=== PATIENT | female | born 1935 | race African-American/Black ===

== ENCOUNTER 2016-03-14 07:20 | Inpatient (IN) | payer MEDICARE ==
[2016-03-14] VITALS (12 sets, daily range): BP systolic 139–192; BP diastolic 62–85; PULSE 68–114; RESP 14–28; TEMP 98–98.4; O2SAT 89–100
[~2016-03-14] VITALS: Ht 165.1 cm; Wt 73.7 kg
[~2016-03-14 07:20] MED LIST: AMLO10 PO; ASPI81 PO; CARV12.52 PO; CEPH500 PO; CINA30 PO; CLON.1 PO; EZET10 PO; HYDR-3129 PO; LEVO125T48 PO; LIPI80TA16 PO; LOSA25; RENATAB6; SEVEL800 PO
--- NOTE | 2016-03-14 07:42 | PD ---
HPI Chief Complaint: Respiratory Distress Time Seen by Provider: 07:28 Travel History International Travel<30 days: No Contact w/Intl Traveler<30days: No Traveled to known affect area: No History of Present Illness HPI 80-year-old female with ESRD on HD (MWF), diabetes, hypothyroidism, here for evaluation of shortness of breath. The patient reports having intermittent shortness of breath for the last week, worse yesterday and today. Shortness of breath is at rest, as well as with exertion. No chest pain. No fevers, chills , cough, or recent illness. No history of pulmonary disease. No history of DVT or PE. No hemoptysis. Last dialysis was 2 days ago. PFSH Past Medical History Anemia: Yes Blood Disorders: No Cancer: No Cardiovascular Problems: Yes (CAD) High Cholesterol: Yes Chemotherapy: No Diabetes: Yes (DIET CONTROLLED) Dialysis: Yes (MWF) Endocrine: Yes Gastrointestinal Disorders: Yes (HX COLON POLYPS) Glaucoma: No Genitourinary: Yes Hepatitis: No Hiatal Hernia: No Hypertension: Yes Immune Disorder: No Implanted Vascular Access Dvce: Yes Musculoskeletal: No Neurologic: Yes (DIABETIC NEUROPATHY) Psychiatric: No Reproductive: No Respiratory: No Immunizations Current: No Myocardial Infarction: Yes (2001, AND A SECOND ONE) Radiation Therapy: No Renal Failure: Yes (HEMODIALYSIS MW) Thyroid Disease: No PNEUMOCCOCAL Vaccine (Year): 1 Tubal Ligation: Yes Past Surgical History Abdominal Surgery: No AICD: No Body Medical Devices: AV FISTULA IN LEFT ARM Cardiac Surgery: No Ear Surgery: No Endocrine Surgery: No Eye Surgery: No Genitourinary Surgery: Yes (DIALYSIS) Gynecologic Surgery: No Joint Replacement: No Oral Surgery: No Pacemaker: Yes Thoracic Surgery: No Other Surgery: Yes (POLYS REMOVED FROM UTERUS) Social History Alcohol Use: No Tobacco Use: No Substance Use: No Allergies-Medications (Allergen,Severity, Reaction): Coded Allergies: No Known Allergies (Verified , 03/14/16) Reported Meds & Prescriptions Reported Meds & Active Scripts Active Reported Rosanne-Nissa Rx (B-Complex W/ C & Folic Acid) 1 Tab 1 Tab PO DAILY Vitamin D3 (Cholecalciferol) 2,000 Unit Chew 2,000 Units CHEW DAILY Clonidine (Clonidine HCl) 0.2 Mg Tab 0.2 Mg PO BID Amlodipine (Amlodipine Besylate) 10 Mg Tab 10 Mg PO DAILY Losartan (Losartan Potassium) 100 Mg Tab 100 Mg PO DAILY Atorvastatin (Atorvastatin Calcium) 40 Mg Tab 40 Mg PO HS Pentoxifylline ER (Pentoxifylline) 400 Mg Tab 400 Mg PO BID Carvedilol 12.5 Mg Tab 12.5 Mg PO BID Renvela (Sevelamer Carbonate) 800 Mg Tab 1,600 Mg PO TID Doxazosin (Doxazosin Mesylate) 2 Mg Tab 2 Mg PO BID Levothyroxine (Levothyroxine Sodium) 137 Mcg Tab 137 Mcg PO DAILY Aspirin 81 Mg Chew 81 Mg CHEW DAILY Review of Systems Except as stated in HPI: all other systems reviewed are Neg Physical Exam Narrative GENERAL: Pleasant, well-developed, well-nourished, comfortable, no acute distress. SKIN: Warm and dry. No rash. HEAD: Atraumatic. Normocephalic. EYES: Pupils equal and round. No scleral icterus. No injection or drainage. ENT: Mucous membranes pink and moist. NECK: Trachea midline. No JVD. CARDIOVASCULAR: Regular rate and rhythm. Left arm dialysis fistula with thrill and bruit. RESPIRATORY: No accessory muscle use. Minimal bibasilar rales. No wheezes or rhonchi. No retractions. Breath sounds equal bilaterally. GASTROINTESTINAL: Abdomen soft, non-tender, nondistended. Hepatic and splenic margins not palpable. MUSCULOSKELETAL: No obvious deformities. No clubbing. No cyanosis. No edema. NEUROLOGICAL: Awake and alert. No obvious cranial nerve deficits. Motor grossly within normal limits. Normal speech. PSYCHIATRIC: Appropriate mood and affect; insight and judgment normal. Data Data Last Documented VS Vital Signs Date Time Temp Pulse Resp B/P Pulse Ox O2 Delivery O2 Flow Rate FiO2 03/14/16 08:35 100 BiPAP 100 03/14/16 08:15 78 15 187/78 5 03/14/16 07:30 98.2 Orders Complete Blood Count With Diff (03/14/16 07:39) Comprehensive Metabolic Panel (03/14/16 07:39) B-Type Natriuretic Peptide (03/14/16 07:39) Act Partial Throm Time (Ptt) (03/14/16 07:39) Prothrombin Time / Inr (Pt) (03/14/16 07:39) Ckmb (Isoenzyme) Profile (03/14/16 07:39) Troponin I (03/14/16 07:39) Influenzae A/B Antigen (03/14/16 07:39) Iv Access Insert/Monitor (03/14/16 07:39) Electrocardiogram (03/14/16 07:39) Ecg Monitoring (03/14/16 07:39) Oximetry (03/14/16 07:39) Oxygen Administration (03/14/16 07:39) Chest, Single Ap (03/14/16 07:39) Sodium Chloride 0.9% Flush (Ns Flush) (03/14/16 07:45) Arterial Blood Gas (Abg) (03/14/16 ) CKMB (03/14/16 07:45) CKMB% (03/14/16 07:45) ^ Blood Flow Rate (03/14/16 09:27) ^ Dialysate Flow Rate (03/14/16 09:27) ^ Dialyzer (03/14/16 09:27) ^ Concentrate (03/14/16 09:27) ^ Acid Concentrate (03/14/16 09:27) ^ Length Of Dialysis (03/14/16 09:27) ^ Frequency Of Dialysis (03/14/16 09:27) ^ Dialysis Obtain (03/14/16 09:27) ^ Needle Size (03/14/16 09:27) ^ Dialysis Schedule (03/14/16 09:27) Resp Oxygen Anjum C Titrat 1-4 L (03/14/16 ) ^ Dialysis Weight (03/14/16 09:27) ^ Obtain As Needed (03/14/16 09:27) Sodium Chlor 0.9% 1000 Ml Inj (Ns 1000 M (03/14/16 09:27) Heparin Inj (Heparin Inj) (03/14/16 09:30) Sodium Chlor 0.9% 1000 Ml Inj (Ns 1000 M (03/14/16 09:27) Sodium Chlor 0.9% 1000 Ml Inj (Ns 1000 M (03/14/16 09:27) Mannitol Inj (Mannitol Inj) (03/14/16 09:30) Albumin 25% Inj (Albumin 25% Inj) (03/14/16 09:30) Sodium Chloride 0.9% Flush (Ns Flush) (03/14/16 09:30) Heparin Inj (Heparin Inj) (03/14/16 09:30) Gentamicin (Dialysis) Inj (Gentamicin (D (03/14/16 09:30) Ondansetron Inj (Zofran Inj) (03/14/16 09:30) Acetaminophen (Tylenol) (03/14/16 09:30) Diphenhydramine (Benadryl) (03/14/16 09:30) Nitroglycerin Sl (Nitrostat Sl) (03/14/16 09:30) Clonidine (Catapres) (03/14/16 09:30) Epoetin Gildardo Inj (Epogen Inj) (03/14/16 09:30) Gelatin 12 Mm/7 Mm Top (Gelfoam 12 Mm/7 (03/14/16 09:30) Admit Order (Ed Use Only) (03/14/16 09:31) Labs Laboratory Tests Test 03/14/16 07:45 White Blood Count 7.2 TH/MM3 Red Blood Count 2.76 MIL/MM3 Hemoglobin 8.4 GM/DL Hematocrit 25.5 % Mean Corpuscular Volume 92.1 FL Mean Corpuscular Hemoglobin 30.4 PG Mean Corpuscular Hemoglobin 33.0 % Concent Red Cell Distribution Width 16.9 % Platelet Count 240 TH/MM3 Mean Platelet Volume 8.9 FL Neutrophils (%) (Auto) 69.1 % Lymphocytes (%) (Auto) 21.2 % Monocytes (%) (Auto) 5.4 % Eosinophils (%) (Auto) 3.4 % Basophils (%) (Auto) 0.9 % Neutrophils # (Auto) 5.0 TH/MM3 Lymphocytes # (Auto) 1.5 TH/MM3 Monocytes # (Auto) 0.4 TH/MM3 Eosinophils # (Auto) 0.2 TH/MM3 Basophils # (Auto) 0.1 TH/MM3 CBC Comment DIFF FINAL Differential Comment Prothrombin Time 11.1 SEC Prothromb Time International 1.0 RATIO Ratio Activated Partial 29.1 SEC Thromboplast Time Sodium Level 138 MEQ/L Potassium Level 5.3 MEQ/L Chloride Level 102 MEQ/L Carbon Dioxide Level 26.2 MEQ/L Anion Gap 10 MEQ/L Blood Urea Nitrogen 32 MG/DL Creatinine 8.02 MG/DL Estimat Glomerular Filtration 6 ML/MIN Rate Random Glucose 103 MG/DL Calcium Level 8.1 MG/DL Total Bilirubin 0.6 MG/DL Aspartate Amino Transf 42 U/L (AST/SGOT) Alanine Aminotransferase 41 U/L (ALT/SGPT) Alkaline Phosphatase 119 U/L Total Creatine Kinase 131 U/L Creatine Kinase MB 0.6 NG/ML Troponin I LESS THAN 0.02 NG/ML B-Type Natriuretic Peptide 1409 PG/ML Total Protein 7.4 GM/DL Albumin 3.6 GM/DL MDM Medical Decision Making Medical Screen Exam Complete: Yes Emergency Medical Condition: Yes Medical Record Reviewed: Yes Differential Diagnosis Pulmonary edema/fluid overload, pneumonia, pneumothorax, PE, ACS Narrative Course Initial vital signs show heart rate 68, blood pressure 192/80, pulse ox 89% on room air, oral temp of 98F. About an hour after arrival to the emergency department, the patient became more short of breath. Her chest x-ray shows congestive heart failure with bilateral interstitial edema and a pleural effusion. She was started on BiPAP. CBC is remarkable for hemoglobin 8.4, hematocrit 25.5. CMP is remarkable for potassium 5.3 with slight hemolysis, BUN 32, creatinine 8 , GFR 6, otherwise unremarkable. Cardiac enzymes are negative. BNP is 1400 Case discussed with director government Dr. Azul. Plan is for dialysis today. Case discussed with lard renderer Dr. Castillo who will admit the patient to his service. Critical Care Narrative Aggregate critical care time was 35 minutes. Time to perform other separately billable procedures was not included in the critical care time. My time did not include minutes spent treating any other patients simultaneously or on activities that did not directly contribute to the patient's treatment. The services I provided to this patient were to treat and/or prevent clinically significant deterioration that could result in: , permanent disability, worsening clinical condition I provided critical care services requiring my management, as noted below: Chart data review, documentation time, medication orders and management, vital sign assessments/reviewing monitor data, ordering and reviewing lab tests, ordering and interpreting/reviewing x-rays and diagnostic studies, care of the patient and discussion of the patient with the admitting physicians. Diagnosis Primary Impression: Pulmonary edema Qualified Code: J81.0 - Acute pulmonary edema Additional Impressions: Pleural effusion, right Shortness of breath Hypoxia Chronic renal insufficiency Qualified Code: N18.9 - Chronic renal insufficiency, unspecified stage Rigoberto Crook MD Mar 14, 2016 07:42
[2016-03-14] MEDS ORDERED: SODIUM CHLORIDE 0.9% FLUSH 5 ML FLUSH IVF PRN ×2 (07:45→09:30)
[2016-03-14] MEDS ORDERED: CHOL1CHW5 CHEW (07:50)
[2016-03-14] MEDS ORDERED: SEVEL800 PO (07:50)
[2016-03-14] MEDS ORDERED: ATOR40TA16 PO (07:50)
[2016-03-14] MEDS ORDERED: DOXA1TAB35 PO (07:50)
[2016-03-14] MEDS ORDERED: AMLO10TA2 PO (07:50)
[2016-03-14] MEDS ORDERED: LOSA100T PO (07:50)
[2016-03-14] MEDS ORDERED: LEVO137T2 PO (07:50)
[2016-03-14] MEDS ORDERED: CLON0.2T PO (07:50)
[2016-03-14] MEDS ORDERED: CARV12.52 PO (07:50)
[2016-03-14] MEDS ORDERED: PENT400T PO (07:50)
[2016-03-14] MEDS ORDERED: ASPI81CH CHEW (07:50)
[2016-03-14] MEDS ORDERED: RENATAB6 PO (07:51)
[2016-03-14 08:03] LABS: BASOPHIL # 0.1 TH/MM3 (0-0.2); BASOPHIL % 0.9 % (0.0-2.0); EOSINOPHIL # 0.2 TH/MM3 (0-0.4); EOSINOPHIL % 3.4 % (0.0-4.0); HEMATOCRIT 25.5 % (35.0-46.0); HEMO FLAGS DIFF FINAL; LYMPH % 21.2 % (9.0-44.0); LYMPHOCYTE # 1.5 TH/MM3 (1.0-4.8); MEAN CELL VOLUME 92.1 FL (80.0-100.0); MEAN CORPUSCULAR HEMOGLOBIN 30.4 PG (27.0-34.0); MONO % 5.4 % (0.0-8.0); NEUT % 69.1 % (16.0-70.0); PLATELET COUNT 240 TH/MM3 (150-450); RED BLOOD COUNT 2.76 MIL/MM3 (4.00-5.30); RED CELL DISTRIBUTION WIDTH 16.9 % (11.6-17.2); WHITE BLOOD COUNT 7.2 TH/MM3 (4.0-11.0)
[2016-03-14 08:16] LABS: APTT (PATIENT) 29.1 SEC (24.3-30.1); PROTHROMBIN TIME - PATIENT 11.1 SEC (9.8-11.6)
--- NOTE | 2016-03-14 08:32 | RADRPT ---
EXAM DATE/TIME: 03/14/2016 07:42 [facility] COMPARISON: No previous studies available for comparison. INDICATIONS : Shortness of breath. MEDICAL HISTORY : None. SURGICAL HISTORY : Pacemaker. April-June 2015. ENCOUNTER: Initial ACUITY: 1 month PAIN SCORE: 0/10 LOCATION: Bilateral chest FINDINGS: The heart is moderately enlarged. Interstitial vascular prominence is seen throughout both lungs. Small right pleural effusion with underlying airspace disease is noted. There 2 chamber cardiac pacem irma is noted in place. CONCLUSION: Congestive heart failure with cardiomegaly, right pleural effusion and mild interstitial edema. Cardiac pacemaker. River Juares MD on March 14, 2016 at 8:29 Board Certified Radiologist. This report was verified electronically.
[2016-03-14 08:34] LABS: ALKALINE PHOSPHATASE 119 U/L (45-117); ALT (GPT) 41 U/L (10-53); ANION GAP 10 MEQ/L (5-15); AST (GOT) 42 U/L (15-37); BICARBONATE 26.2 MEQ/L (21.0-32.0); BLOOD UREA NITROGEN 32 MG/DL (7-18); CHLORIDE 102 MEQ/L (98-107); CREATINE KINASE 131 U/L (26-192); GLOMERULAR FILTRATION RATE 6 ML/MIN (>89); SODIUM (NA) 138 MEQ/L (136-145); TOTAL BILIRUBIN ADULT 0.6 MG/DL (0.2-1.0)
[2016-03-14 08:39] LABS: POTASSIUM 5.3 MEQ/L (3.5-5.1)
[2016-03-14 08:51] LABS: CKMB 0.6 NG/ML (0.5-3.6)
[2016-03-14] MEDS ORDERED: SODIUM CHLOR 0.9% 1000 ML INJ 1,000 ML IV PRN ×3 (09:27)
[2016-03-14] MEDS ORDERED: ALBUMIN HUMAN 25% 25 GM/100 ML BAGP IV PRN (09:30)
[2016-03-14] MEDS ORDERED: ACETAMINOPHEN 325 MG TAB PO PRN (09:30)
[2016-03-14] MEDS ORDERED: ONDANSETRON HCL 4 MG/2 ML VIAL IV PRN (09:30)
[2016-03-14] MEDS ORDERED: cloNIDine HCL 0.1 MG TAB PO PRN (09:30)
[2016-03-14] MEDS ORDERED: EPOETIN ALFA 10,000 UNITS/ML VIAL IV PRN (09:30)
[2016-03-14] MEDS ORDERED: GELATIN 12 MM/7 MM FOAM TOP PRN (09:30)
[2016-03-14] MEDS ORDERED: GENTAMICIN SULFATE (DIALYSIS USE ONLY) 20 MG/2 ML VIAL IV PRN (09:30)
[2016-03-14] MEDS ORDERED: NITROGLYCERIN 0.4 MG SL 25 TABS/BTL SL PRN (09:30)
[2016-03-14] MEDS ORDERED: MANNITOL 12.5 GM/50 ML VIAL IV PRN (09:30)
[2016-03-14] MEDS ORDERED: diphenhydrAMINE HCL 25 MG CAP PO PRN (09:30)
[2016-03-14] MEDS ORDERED: HEPARIN SODIUM - IV 10,000 UNITS/10 ML VIAL PRN (09:30)
[2016-03-14] MEDS ORDERED: HEPARIN SODIUM - IV 10,000 UNITS/10 ML VIAL IVF PRN (09:30)
[2016-03-14] MEDS ORDERED: CHLORHEXIDINE GLUCONATE 2 % 1 PACK (2 CLOTHS) TOP PRN (10:30)
[2016-03-14] MEDS ORDERED: MISCELLANEOUS NURSING INFORMATION XX SCH (10:30)
[2016-03-14] MEDS ORDERED: RESP: ALBUTEROL 2.5 MG/IPRATROPIUM 0.5 MG NEB (PRN) INH (10:30)
[2016-03-14] MEDS ORDERED: hydrALAZINE HCL 20 MG/ML VIAL IV PUSH PRN (10:45)
[2016-03-14] MEDS: PENTOXIFYLLINE 400 MG CONTROLLED RELEASE TAB PO SCH ×2 (11:00→20:08)
[2016-03-14] MEDS: LEVOTHYROXINE SODIUM 25 MCG TAB PO SCH (11:00)
[2016-03-14] MEDS: LEVOTHYROXINE SODIUM 112 MCG TAB PO SCH (11:00)
--- NOTE | 2016-03-14 11:28 | MH ---
cc: ROHAN ABRAHAM M.D. DATE OF ADMISSION 03/14/2016 DATE OF 1935 HISTORY The patient is a 80-year-old female with a past medical history of end-stage renal disease on hemodialysis Thursday, Thursday, Thursday being followed by Dr. Jeremias Eid as an outpatient, hypothyroidism, hypertension and diet-controlled diabetes. She presented to [facility] ED with a two-day history of progressive worsening shortness of breath associated with swelling of her feet. She denies any associated symptoms of chest pain, cough, fever or any constitutional symptoms. In addition, she denies any history of nausea, vomiting, abdominal pain, orthopnea or PND. Her last dialysis session was two days ago. On arrival to the ED, she was hypertensive with a blood pressure of 192/80. The patient was placed on a BiPap currently 10/5 with 100% FIO2 with a saturation of 100%. A chest x-ray in the ED showed fluid overload, CHF with cardiomegaly. Nephrology service has been contacted by ED to initiate hemodialysis. The patient has a fistula in the left upper extremity. Her laboratory data significant for elevated BNP at 1409. Her creatinine is 8.02 with a potassium 5.30. No evidence of any fever or leukocytosis. PAST MEDICAL HISTORY Significant for: 1. Hypothyroidism 2. Hypertension 3. End-stage renal disease PAST SURGICAL HISTORY 1. AV fistula in the left upper extremity 2. Polyps removed from the uterus ALLERGIES NO KNOWN DRUG ALLERGIES. SOCIAL HISTORY Nonsmoker, nondrinker. FAMILY HISTORY Noncontributory. REPORTED MEDICATIONS 1. Vitamin D3 2. Clonidine 3. Amlodipine 4. Losartan 5. Atorvastatin 6. Pentoxifylline 7. Coreg 8. [place] 9. Doxazosin 10. Levofloxacin 11. Aspirin REVIEW OF SYSTEMS As per HPI. The review of the systems is unremarkable. PHYSICAL EXAM This is an 80-year-old female lying in bed in mild to moderate respiratory distress. VITAL SIGNS: Temperature of 98.2, pulse of 91, blood pressure 170/67, saturation of 100% on BiPap 10/5 with 100% saturation. HEENT: Atraumatic, normocephalic. Pupil equal and reactive to light and accommodation. Extraocular muscles intact. Conjunctivae pink. Nonicteric sclerae. Oral mucosa within normal. NECK: Supple. No JVD, adenopathy, thyromegaly. Trachea midline. CARDIOVASCULAR: Regular rate and rhythm. Normal S1-S2. No murmurs, rubs or gallops noted. PULMONARY: Bilateral equal entry with coarse breath sounds. ABDOMEN: Soft, obese, nontender, no distension. Positive bowel sounds. EXTREMITIES: No cyanosis, edema. NEUROLOGIC: No focal sensory deficit. RADIOGRAPHY STUDIES A chest x-ray Showed pulmonary vascular congestion, cardiomegaly. LABORATORY DATA Sodium 138, potassium 5.3, chloride 102, CO2 26, BUN 32, creatinine 8, glucose of 103, BNP 1409, troponin less than 0.02, total CK 131. WBC at 7.2, hemoglobin 8.4, hematocrit 25, platelet count of 240, INR 1, PT 11.1, PTT 29.1. IMPRESSION 1. Acute hypoxemic respiratory failure. 2. Hypertensive urgency 3. Fluid overload 4. End-stage renal disease 5. Hypothyroidism 6. Anemia of chronic disease RECOMMENDATIONS 1. Monitor neuro status and avoid any sedatives. 2. Wean down oxygen as tolerated. 3. Maintain sats above 92%. 4. Bronchodilators in the form of DuoNeb q4+q2 p.r.n. for shortness of breath. 5. Noninvasive positive pressure ventilation p.r.n. for respiratory distress. 6. Resume home blood pressure meds which include Norvasc 10 mg daily, clonidine 0.2 mg b.i.d., in addition will place on hydralazine 10 mg IV q6 hours p.r.n. for systolic blood pressure greater than 160. 7. Continue with aspirin and Lipitor 40 mg p.o. q.h.s. 8. Monitor renal function and electrolytes closely. 9. Nephrology service has been notified for initiation of hemodialysis. 10. Continue with Renvela 1600 mg p.o. t.i.d. and vitamin D3 11. Keep n.p.o. for now until respiratory status improves. 12. Monitor for signs of infections which include fever and WBC. 13. We will check urinalysis with culture if indicated. 14. Monitor CBC and continue with Epogen per nephrology with Hemodialysis. 15. Sliding scale insulin if needed for glycemic control. 16. We will continue with Synthroid home dose 137 mcg p.o. daily. We will check baseline TSH level. 17. GI prophylaxis with Protonix 40 mg daily and DVT prophylaxis with SCD's. Further recommendations will be based on hospital course. Critical care time 40 minutes excluding procedures. Addendum: Patient s/p HD with removal 5L. She is down to 3L oxygen with good sats, BP is better controlled. Will sign off and transfer care to [facility]. MD PERRI Garcia/GREGORIO /10:43 AM /11:13 AM MTDMitra
--- NOTE | 2016-03-14 12:14 | PD.CONS ---
HPI Service Nephrology Consult Requested By Reason for Consult ESRD on HD, fluid overload Primary Care Physician Jeremias Eid MD History of Present Illness This is an 80 y/o AAF patient who presented to ER with shortness of breath. Chest X ray confirming fluid overload, she was nearly started on BiPap for respiratory assistance. PMH of ESRD on HD -, HTN, Hyperlipidemia, and anemia , she had full treatment on Thursday. She was seen during dialysis today, on NRB but breathing easily. Blood pressure is acceptable. We were consulted for dialysis management. (Monica Bella) Review of Systems Constitutional: COMPLAINS OF: Fatigue, DENIES: Weight gain, Change in appetite Respiratory: COMPLAINS OF: Shortness of breath Cardiovascular: COMPLAINS OF: Dyspnea on Exertion, DENIES: Chest pain, Lower Extremity Edema (Monica Bella) Past Family Social History Allergies: Coded Allergies: No Known Allergies (Verified , 03/14/16) Past Medical History HTN Hypothyroid Anemia Metabolic Bone disorder Hyperlipidemia Past Surgical History AVF left arm Reported Medications Rosanne-Nissa Rx (B-Complex W/ C & Folic Acid) 1 Tab 1 Tab PO DAILY Vitamin D3 (Cholecalciferol) 2,000 Unit Chew 2,000 Units CHEW DAILY Clonidine (Clonidine HCl) 0.2 Mg Tab 0.2 Mg PO BID Amlodipine (Amlodipine Besylate) 10 Mg Tab 10 Mg PO DAILY Losartan (Losartan Potassium) 100 Mg Tab 100 Mg PO DAILY Atorvastatin (Atorvastatin Calcium) 40 Mg Tab 40 Mg PO HS Pentoxifylline ER (Pentoxifylline) 400 Mg Tab 400 Mg PO BID Carvedilol 12.5 Mg Tab 12.5 Mg PO BID Renvela (Sevelamer Carbonate) 800 Mg Tab 1,600 Mg PO TID Doxazosin (Doxazosin Mesylate) 2 Mg Tab 2 Mg PO BID Levothyroxine (Levothyroxine Sodium) 137 Mcg Tab 137 Mcg PO DAILY Aspirin 81 Mg Chew 81 Mg CHEW DAILY Active Ordered Medications Current Medications Medications (Trade) Dose Ordered Sig/Tamar Route Start Time Stop Time Status Last Admin IV Flush 2 ml 2 ml UNSCH PRN IVF 03/14/16 07:45 (NS 1000 ml Inj) 1,000 ml @ 0 mls/hr Q0M PRN IV 03/14/16 09:27 Heparin Sodium (Porcine) 8000 units 8,000 units UNSCH PRN IVF 03/14/16 09:30 Sodium Chloride 1,000 ml @ 200 mls/hr Q5H PRN IV 03/14/16 09:27 (NS 1000 ml Inj) 1,000 ml @ 0 mls/hr Q0M PRN IV 03/14/16 09:27 (Mannitol Inj) 12.5 gm UNSCH PRN IV 03/14/16 09:30 (Albumin 25% Inj) 25 gm UNSCH PRN IV 03/14/16 09:30 (NS Flush) 5 ml UNSCH PRN IVF 03/14/16 09:30 (Heparin Inj) UNSCH PRN .XX 03/14/16 09:30 (Gentamicin (Dialysis) Inj) 20 mg UNSCH PRN IV 03/14/16 09:30 (Zofran Inj) 4 mg UNSCH PRN IV 03/14/16 09:30 (Tylenol) 650 mg UNSCH PRN PO 03/14/16 09:30 (Benadryl) 25 mg UNSCH PRN PO 03/14/16 09:30 (Nitrostat Sl) 0.4 mg UNSCH PRN SL 03/14/16 09:30 (Catapres) 0.1 mg UNSCH PRN PO 03/14/16 09:30 (Epogen Inj) 10,000 units UNSCH PRN IV 03/14/16 09:30 (Gelfoam 12 Mm/7 Mm Top) 1 foam UNSCH PRN TOP 03/14/16 09:30 (Protonix Inj) 40 mg DAILY IV 03/15/16 09:00 Miscellaneous Information 1 Q361D XX 03/14/16 10:30 (Chlorhexidine 2% Cloth) 3 pack Taper DAILY@04 TOP 03/15/16 04:00 03/11/17 03:59 (Chlorhexidine 2% Cloth) 3 pack UNSCH PRN TOP 03/14/16 10:30 (Norvasc) 10 mg DAILY PO 03/14/16 11:00 (Aspirin Chew) 81 mg DAILY CHEW 03/14/16 11:00 (Lipitor) 40 mg HS PO 03/14/16 21:00 (Catapres) 0.2 mg BID PO 03/14/16 11:00 (TRENtal SR) 400 mg BID PO 03/14/16 11:00 (Renvela) 1,600 mg TID PO 03/14/16 13:00 (Vitamin D3) 2,000 units DAILY PO 03/14/16 11:00 (Synthroid) 112 mcg DAILY@06 PO 03/14/16 11:00 (Apresoline Inj) 10 mg Q6H PRN IV PUSH 03/14/16 10:45 (Synthroid) 25 mcg DAILY@06 PO 03/14/16 11:00 Family History No hx of family renal disorders Social History , lives locally with No smoking or drinking per history Retired full code independent (Monica Bella) Physical Exam Vital Signs Vital Signs Date Time Temp Pulse Resp B/P Pulse Ox O2 Delivery O2 Flow Rate FiO2 03/14/16 08:35 100 BiPAP 100 03/14/16 08:35 100 100 03/14/16 08:15 78 15 187/78 92 Nasal Cannula 5 03/14/16 07:45 92 Nasal Cannula 2 03/14/16 07:35 19 91 Room Air 03/14/16 07:30 98.2 114 19 174/85 91 03/14/16 07:26 98.0 68 28 192/80 89 Room Air Physical Exam Young appearing AAF sitting supine on Non rebreather, not tachypneic awake/oriented x 3, no neuro deficit Lungs; bibasilar rales, no wheezing CV: S1/S2, regular rate Abd: obese, soft Ext: no edema, LUE AVF, accessed during dialysis Laboratory Laboratory Tests Test 03/14/16 07:45 White Blood Count 7.2 Red Blood Count 2.76 Hemoglobin 8.4 Hematocrit 25.5 Mean Corpuscular Volume 92.1 Mean Corpuscular Hemoglobin 30.4 Mean Corpuscular Hemoglobin 33.0 Concent Red Cell Distribution Width 16.9 Platelet Count 240 Mean Platelet Volume 8.9 Neutrophils (%) (Auto) 69.1 Lymphocytes (%) (Auto) 21.2 Monocytes (%) (Auto) 5.4 Eosinophils (%) (Auto) 3.4 Basophils (%) (Auto) 0.9 Neutrophils # (Auto) 5.0 Lymphocytes # (Auto) 1.5 Monocytes # (Auto) 0.4 Eosinophils # (Auto) 0.2 Basophils # (Auto) 0.1 CBC Comment DIFF FINAL Differential Comment Prothrombin Time 11.1 Prothromb Time International 1.0 Ratio Activated Partial 29.1 Thromboplast Time Sodium Level 138 Potassium Level 5.3 Chloride Level 102 Carbon Dioxide Level 26.2 Anion Gap 10 Blood Urea Nitrogen 32 Creatinine 8.02 Estimat Glomerular Filtration 6 Rate Random Glucose 103 Calcium Level 8.1 Total Bilirubin 0.6 Aspartate Amino Transf 42 (AST/SGOT) Alanine Aminotransferase 41 (ALT/SGPT) Alkaline Phosphatase 119 Total Creatine Kinase 131 Creatine Kinase MB 0.6 Troponin I LESS THAN 0.02 B-Type Natriuretic Peptide 1409 Total Protein 7.4 Albumin 3.6 Date/Time Procedure Status Source Growth 03/14/16 09:00 Influenza Types A,B Antigen (MICHELLE) - Final Complete Nasal Washing NEGATIVE FOR FLU A AND B ANTIGEN.... (Monica Bella) Result Diagram: 03/14/16 0745 03/14/16 0745 Imaging Last 72 hours Impressions Chest X-Ray 03/14/16 0739 Signed Impressions: Service Date/Time: Monday, March 14, 2016 07:42 - CONCLUSION: Congestive heart failure with cardiomegaly, right pleural effusion and mild interstitial edema. Cardiac pacemaker. River Juares MD (Monica Bella) Assessment and Plan Problem List: (1) ESRD (end stage renal disease) Plan: Seen during dialysis on a 3K, 350 BFR, goal 5L continue HD while inpatient follow up potassium level in the morning monitor AVF for complications begin renvela for metabolic bone disorder (2) Fluid overload Plan: 5 liter UF today monitor fluid volume status (3) Anemia Plan: epogen with dialysis (Monica Bella) Problem List: (1) Fluid overload (2) Anemia (3) ESRD (end stage renal disease) (4) Essential (primary) hypertension Plan: Monitor response after fluid removal. Assessment and Plan patient was seen and examined. She presented with pulmonary edema, and hypoxia. Emergently dialyzed, feels much better, except for some cramping at the ankles. Possible discharge tomorrow. (Hemant Azul MD) Monica Bella Mar 14, 2016 12:14 Hemant Azul MD Mar 14, 2016 16:26
[2016-03-14] MEDS: cloNIDine HCL 0.2 MG TAB PO SCH ×2 (14:39→20:02)
[2016-03-14] MEDS: CHOLECALCIFEROL (VIT D3) 1000 UNIT TAB PO SCH (14:39)
[2016-03-14] MEDS: ASPIRIN 81 MG CHEW TAB CHEW SCH (14:39)
[2016-03-14] MEDS: SEVELAMER CARBONATE 800 MG TAB PO SCH ×2 (14:40→17:25)
[2016-03-14] MEDS: RESP: ALBUTEROL 2.5 MG/IPRATROPIUM 0.5 MG NEB (SCH) INH ×3 (16:44→23:23)
--- NOTE | 2016-03-14 18:47 | EKG ---
Date Performed: 03/14/2016 Time Performed: 08:15:28 PTAGE: 80 years EKG: ELECTRONIC ATRIAL PACEMAKER NONSPECIFIC T-WAVE ABNORMALITY ABNORMAL RHYTHM ECG PREVIOUS TRACING : 09/26/2014 08.46 Since previous tracing, no significant change noted DOCTOR: Mary Boswell Interpretating Date/Time 03/14/2016 18:45:41
[2016-03-14] MEDS ORDERED: ATORVASTATIN 40 MG TAB PO SCH (21:00)
[2016-03-15] VITALS (8 sets, daily range): BP systolic 155–181; BP diastolic 68–73; PULSE 72–77; RESP 13–17; TEMP 98.3–98.8; O2SAT 96–99
[2016-03-15] MEDS: RESP: ALBUTEROL 2.5 MG/IPRATROPIUM 0.5 MG NEB (SCH) INH ×3 (03:09→11:18)
[2016-03-15] MEDS ORDERED: CHLORHEXIDINE GLUCONATE 2 % 1 PACK (2 CLOTHS) TOP SCH (04:00)
[2016-03-15 04:13] LABS: AUTOMATED NEUTROPHIL # 7.6 TH/MM3 (1.8-7.7); BASOPHIL % 0.2 % (0.0-2.0); EOSINOPHIL # 0.2 TH/MM3 (0-0.4); EOSINOPHIL % 1.8 % (0.0-4.0); HEMATOCRIT 27.9 % (35.0-46.0); HEMO FLAGS DIFF FINAL; LYMPH % 12.1 % (9.0-44.0); LYMPHOCYTE # 1.2 TH/MM3 (1.0-4.8); MEAN CORPUSCULAR HEMOGLOBIN 30.1 PG (27.0-34.0); MONO % 6.9 % (0.0-8.0); PLATELET COUNT 237 TH/MM3 (150-450); RED BLOOD COUNT 3.06 MIL/MM3 (4.00-5.30); RED CELL DISTRIBUTION WIDTH 16.9 % (11.6-17.2); WHITE BLOOD COUNT 9.6 TH/MM3 (4.0-11.0)
[2016-03-15 04:40] LABS: BICARBONATE 31.9 MEQ/L (21.0-32.0); POTASSIUM 4.1 MEQ/L (3.5-5.1)
--- NOTE | 2016-03-15 04:52 | RADRPT ---
EXAM DATE/TIME: 03/15/2016 03:29 [facility] COMPARISON: CHEST SINGLE AP, March 14, 2016, 7:42. INDICATIONS : Shortness of breath, possible pulmonary disease. MEDICAL HISTORY : Congestive heart failure. SURGICAL HISTORY : Pacemaker. ENCOUNTER: Subsequent ACUITY: 2 days PAIN SCORE: 0/10 LOCATION: Bilateral chest FINDINGS: The cardiac silhouette is enlarged in transverse diameter. A bipolar pacemaker is in place via a left sided approach. There is prominence of the central pulmonary vasculature with indistinct vascular ma rgins compatible with vascular congestion but no evidence of overt failure. The findings are improved when compared with the prior exam. A small right sided effusion is present. CONCLUSION: 1. Cardiomegaly with improving congestive heart failure when compared with the prior study 2. Small right effusion Levi Song MD on March 15, 2016 at 4:50 Board Certified Radiologist. This report was verified electronically.
[2016-03-15] MEDS: LEVOTHYROXINE SODIUM 112 MCG TAB PO SCH (05:32)
[2016-03-15] MEDS: LEVOTHYROXINE SODIUM 25 MCG TAB PO SCH (05:32)
--- NOTE | 2016-03-15 08:45 | HHI.PR ---
Subjective Remarks feels good. no sob. wants to go home Objective Vitals heart reg lung cta abd s/nt ext no edema Vital Signs Date Time Temp Pulse Resp B/P Pulse Ox O2 Delivery O2 Flow Rate FiO2 03/15/16 07:26 98 21 03/15/16 06:00 75 03/15/16 04:00 73 03/15/16 04:00 98.6 73 14 163/69 96 03/15/16 02:00 72 03/15/16 00:00 75 03/15/16 00:00 98.8 75 13 155/69 99 03/14/16 22:00 79 03/14/16 21:57 21 03/14/16 20:53 94 03/14/16 20:00 79 03/14/16 20:00 98.4 79 14 139/62 100 03/14/16 18:00 79 03/14/16 16:48 100 Nasal Cannula 3.00 03/14/16 16:00 98.4 78 16 155/71 100 03/14/16 16:00 78 03/14/16 14:00 80 03/14/16 13:46 98.3 79 14 174/76 100 03/14/16 13:46 80 03/14/16 03/14/16 03/15/16 15:00 23:00 07:00 Intake Total 150 ml 150 ml Output Total 5000 ml Balance -5000 ml 150 ml 150 ml Intake Oral 150 ml 150 ml Hemodialysis 5000 ml # Bowel Movements 1 Result Diagram: 03/15/1630903/15/16 0310 A/P Problem List: (1) ESRD (end stage renal disease) Status: Acute Plan: Pt with esrd presented with volume overload and hypoxic respiratory failure requiring temp. bipap HD 5 L yesterday and now on room air d/c today and f/u. (2) Fluid overload Status: Acute Plan: see above (3) Hypoxia Status: Acute Plan: see above (4) Essential (primary) hypertension Status: Acute Plan: home Waylon Salinas MD Mar 15, 2016 08:45
--- NOTE | 2016-03-15 08:46 | HHI.DCPOC ---
Discharge Care Plan Diagnosis: (1) ESRD (end stage renal disease) (2) Fluid overload (3) Hypoxia (4) Essential (primary) hypertension Goals to Promote Your Health * To prevent worsening of your condition and complications * To maintain your health at the optimal level Directions to Meet Your Goals Take your medications as prescribed Follow your dietary instruction Follow activity as directed Keep your appointments as scheduled Take your immunizations and boosters as scheduled If your symptoms worsen call your PCP, if no PCP go to Urgent Care Center or Emergency Room Smoking is Dangerous to Your Health. Avoid second hand smoke Call the 24-hour hour crisis hotline for domestic abuse at Waylon Santiago MD Mar 15, 2016 08:46
[2016-03-15] MEDS ORDERED: PANTOPRAZOLE SODIUM 40 MG VIAL IV SCH (09:00)
[2016-03-15] MEDS: PENTOXIFYLLINE 400 MG CONTROLLED RELEASE TAB PO SCH (09:00)
[2016-03-15] MEDS: ASPIRIN 81 MG CHEW TAB CHEW SCH (09:00)
[2016-03-15] MEDS ORDERED: cloNIDine HCL 0.2 MG TAB PO SCH (09:00)
[2016-03-15] MEDS: SEVELAMER CARBONATE 800 MG TAB PO SCH (09:04)
[2016-03-15] MEDS: CHOLECALCIFEROL (VIT D3) 1000 UNIT TAB PO SCH (09:04)
== END 2016-03-15 12:25 | disposition home or self-care (01) | DRG 189 ==
LOC: NEPC 07:32 → NEDA 09:34 → HIME 13:25
PROVIDERS: ADMIT Internal Medicine Critical Care Medicine; ATTEND Internal Medicine Critical Care Medicine
DX: J96.01 Acute respiratory failure with hypoxia (principal); N18.6 End stage renal disease; I13.0 Hypertensive heart and chronic kidney disease with heart failure and stage 1 through stage 4 chronic kidney disease, or unspecified chronic kidney disease; I50.9 Heart failure, unspecified; E88.89 Other specified metabolic disorders; E11.22 Type 2 diabetes mellitus with diabetic chronic kidney disease; I16.0 Hypertensive urgency; D63.8 Anemia in other chronic diseases classified elsewhere; E03.9 Hypothyroidism, unspecified; N18.9 Chronic kidney disease, unspecified; E11.40 Type 2 diabetes mellitus with diabetic neuropathy, unspecified; E78.5 Hyperlipidemia, unspecified; I25.10 Atherosclerotic heart disease of native coronary artery without angina pectoris; I25.2 Old myocardial infarction; Z86.010 Personal history of colon polyps; Z99.2 Dependence on renal dialysis
CPT/HCPCS: 71010; 80048; 80053; 82550; 82552; 83880; 84443; 84484; 85025; 85610; 85730; 87641; 87804; 90935; 93005; 94002; 94640; 94664; 96374; C9113; J0360; Q4081

== ENCOUNTER → 2016-06-17 | Outpatient (CLI) | payer MEDICARE ==
[~2016-06-17] VITALS: Ht 160 cm; Wt 76.8 kg
[~2016-06-17] MED LIST changes: -AMLO10 PO; +AMLO10TA2 PO; -ASPI81 PO; +ASPI81CH CHEW; +ATOR40TA16 PO; -CEPH500 PO; +CHLORHEXIDINE GLUCONATE 2 % 1 PACK (2 CLOTHS) TOPICAL PRN; +CHOL1CHW5 CHEW; -CINA30 PO; -CLON.1 PO; +CLON0.2T PO; +DOXA1TAB35 PO; -EZET10 PO; -HYDR-3129 PO; +INSULIN HUMAN REGULAR 1,000 UNITS/10 ML VIAL SQ PRN; +LACTATED RINGER'S 1000 ML IV PRN; -LEVO125T48 PO; +LEVO137T2 PO; -LIPI80TA16 PO; +LOSA100T PO; -LOSA25; +METOPROLOL TARTRATE 25 MG TAB PO PRN; +PENT400T PO; +POVIDONE IODINE 5% (ANTISEPSIS KIT) 4 APPLICATIONS EACH NARE PRN; +PROPOFOL 200 MG/20 ML AMP IV ONE; -RENATAB6; +RENATAB6 PO; +SODIUM CHLORID 0.9% 500 ML IV PRN
[2016-06-17 09:36] VITALS: BP 185/67; PULSE 72; RESP 18; TEMP 98.5; O2SAT 98
[2016-06-17 13:06] VITALS: TEMP 97.7
--- NOTE | 2016-06-17 13:20 | GIPROC ---
[facility] [address] [facility]. [facility], [address] EGD PROCEDURE REPORT EXAM DATE: 06/17/2016 PATIENT NAME: Lenka Barr MR #: [id number] BIRTHDATE: 1935 ATTENDING: Cathleen Barlow MD ORDER #: [id number] WASTE MACHINE TENDER: Blair Li Schulman, Neal, and Jody Fuentes STATUS: outpatient INDICATIONS: The patient is a 81 yr old female here for an EGD due to anemia PROCEDURE PERFORMED: EGD w/ biopsy MEDICATIONS: None and Per Anesthesia. TOPICAL ANESTHETIC: none CONSENT: The patient understands the risks and benefits of the procedure and understands that these risks include, but are not limited to: sedation, allergic reaction, infection, perforation and/or bleeding. Alternative means of evaluation and treatment include, among others: physical exam, x-rays, and/or surgical intervention. The patient elects to proceed with this endoscopic procedure. medical equipment was checked for proper function. Hand hygiene and appropriate measures for infection prevention was taken. After the risks, benefits and alternatives of the procedure were thoroughly explained, Informed consent was verified, confirmed and timeout was successfully executed by the treatment team. The patient was anesthetized with topical anesthesia and the EC-[id number] (Pedi C) endoscope was introduced through the mouth and advanced to the second portion of the duodenum. Retroflexed views revealed a hiatal hernia The gastroscope was then slowly withdrawn and removed. Duodenitis second portion-biopsy gastritis antrum-biopsy esophagitis distal esophagus-biopsy. ADVERSE EVENTS: There were no complications. IMPRESSIONS: 1. Duodenitis second portion-biopsy gastritis antrum-biopsy esophagitis distal esophagus-biopsy 2. Retroflexed views revealed a hiatal hernia RECOMMENDATIONS: 1. Await biopsy results. Biopsy results will not be ready for 7-10 days. If you don't hear from us in two weeks, call our office for biopsy results. 2. Anti-reflux regimen 3. Continue PPI 4. Avoid NSAIDS PATIENT CONDITION: stable DISPOSITION: Home REPEAT EXAM: EGD pending biopsy results Cathleen Barlow MD eSigned: Cathleen Barlow MD 06/17/2016 1:20 PM cc:
--- NOTE | 2016-06-17 13:24 | GIPROC ---
[facility] [address] [facility]. [facility] [place], [address] COLONOSCOPY PROCEDURE REPORT EXAM DATE: 06/17/2016 PATIENT NAME: Lenka Barr MR #: [id number] BIRTHDATE: 1935 ENDOSCOPIST: Cathleen Barlow MD ORDER #: [id number] GUEST SERVICES MANAGER: Blair Li Schulman, Neal, and Jody Fuentes STATUS: outpatient INDICATIONS: The patient is a 81 yr old female here for a colonoscopy due to anemia PROCEDURE PERFORMED: Colonoscopy, diagnostic -incomplete poor prep MEDICATIONS: None and Per Anesthesia. PREP QUALITY: poor ESTIMATED BLOOD LOSS: None CONSENT: The patient understands the risks and benefits of the procedure and understands that these risks include, but are not limited to: sedation, allergic reaction, infection, perforation and/or bleeding. Alternative means of evaluation and treatment include, among others: physical exam, x-rays, and/or surgical intervention. The patient elects to proceed with this endoscopic procedure. medical equipment was checked for proper function. Hand hygiene and appropriate measures for infection prevention was taken. After the risks, benefits and alternatives of the procedure were thoroughly explained, Informed consent was verified, confirmed and timeout was successfully executed by the treatment team. A digital exam revealed external hemorrhoids The Pentax EC-[id number] endoscope was introduced through the anus and advanced to the mid transverse colon. The instrument was then slowly withdrawn as the colon was fully examined. COLON FINDINGS: Diverticulosis sigmoid,descending poor prep. Retroflexed views revealed internal hemorrhoids and Retroflexed views revealed small internal hemorrhoids The scope was then completely withdrawn from the patient and the procedure terminated. PROCEDURE WITHDRAWAL TIME:6minutes ADVERSE EVENTS: There were no complications. IMPRESSIONS: 1. Diverticulosis sigmoid,descending poor prep 2. Retroflexed views revealed internal hemorrhoids 3. Retroflexed views revealed small internal hemorrhoids 4. Revealed external hemorrhoids RECOMMENDATIONS: High fiber diet repeat colon better prep in 1-3 month RECALL: Colonoscopy in 1-3 month Cathleen Barlow MD eSigned: Cathleen Barlow MD 06/17/2016 1:23 PM cc:
[2016-06-17 13:25] VITALS: BP 150/64; PULSE 74; RESP 18; O2SAT 96
== END ==
LOC: HEND 08:52
PROVIDERS: ATTEND Internal Medicine Gastroenterology
DX: K29.50 Unspecified chronic gastritis without bleeding (principal); K29.80 Duodenitis without bleeding; K20.9 Esophagitis, unspecified; K44.9 Diaphragmatic hernia without obstruction or gangrene; K57.30 Diverticulosis of large intestine without perforation or abscess without bleeding; K64.4 Residual hemorrhoidal skin tags; K64.8 Other hemorrhoids; D64.9 Anemia, unspecified; Z91.19 Patient's noncompliance with other medical treatment and regimen; Z86.010 Personal history of colon polyps
CPT/HCPCS: 00740; 43239; 45378; 84132; 88305; 88312; J7040

== ENCOUNTER 2016-08-11 00:30 | Inpatient (IN) | payer MEDICARE ==
[~2016-08-11] VITALS: Ht 160 cm; Wt 76.0 kg
[2016-08-11] VITALS (19 sets, daily range): BP systolic 137–183; BP diastolic 63–88; PULSE 70–80; RESP 19–32; TEMP 98–98.9; O2SAT 90–100
[~2016-08-11 00:30] MED LIST changes: -CHLORHEXIDINE GLUCONATE 2 % 1 PACK (2 CLOTHS) TOPICAL PRN; -INSULIN HUMAN REGULAR 1,000 UNITS/10 ML VIAL SQ PRN; -LACTATED RINGER'S 1000 ML IV PRN; -METOPROLOL TARTRATE 25 MG TAB PO PRN; -POVIDONE IODINE 5% (ANTISEPSIS KIT) 4 APPLICATIONS EACH NARE PRN; -PROPOFOL 200 MG/20 ML AMP IV ONE; -SODIUM CHLORID 0.9% 500 ML IV PRN
[2016-08-11] MEDS ORDERED: niCARdipine INJ 25 MG in SODIUM CHLOR 0.9% 250 ML INJ 250 ML IV SCH (00:45)
[2016-08-11] MEDS ORDERED: SODIUM CHLORIDE 0.9% FLUSH 10 ML FLUSH IVF PRN (00:45)
[2016-08-11 00:50] LABS: AUTOMATED NEUTROPHIL # 3.7 TH/MM3 (1.8-7.7); BASOPHIL # 0.1 TH/MM3 (0-0.2); EOSINOPHIL # 0.2 TH/MM3 (0-0.4); EOSINOPHIL % 3.5 % (0.0-4.0); HEMATOCRIT 30.1 % (35.0-46.0); HEMO FLAGS DIFF FINAL; LYMPH % 36.6 % (9.0-44.0); LYMPHOCYTE # 2.4 TH/MM3 (1.0-4.8); MEAN CELL VOLUME 91.4 FL (80.0-100.0); MEAN CORPUSCULAR HEMOGLOBIN 29.5 PG (27.0-34.0); MEAN CORPUSCULAR HGB CONC 32.3 % (32.0-36.0); MONO % 3.3 % (0.0-8.0); NEUT % 55.6 % (16.0-70.0); PLATELET COUNT 256 TH/MM3 (150-450); RED CELL DISTRIBUTION WIDTH 18.1 % (11.6-17.2); WHITE BLOOD COUNT 6.7 TH/MM3 (4.0-11.0)
--- NOTE | 2016-08-11 00:52 | PD ---
HPI Chief Complaint: Respiratory Distress Time Seen by Provider: 00:32 Travel History International Travel<30 days: No Contact w/Intl Traveler<30days: No Traveled to known affect area: No History of Present Illness HPI Is an 81-year-old female on hemodialysis Thursday presents emergency department in respiratory failure she is brought in by EMS on CPAP, initial saturations in the low 80s in the field. Breath sounds were noted to be rales in the field. Blood pressure was taken in the field at 240/p. On arrival the patient is tachypneic and very difficult to get history from, she is GCS of 15, arrives and states that she has had this happen to her before need to be admitted for dialysis and on BiPAP. Patient states she does make some minimal urine, she is followed by Dr. Priti Eid for her dialysis. She denies any chest pain fevers abdominal pain nausea vomiting or increased swelling of the legs. PFSH Past Medical History Anemia: Yes Blood Disorders: No Cancer: No Cardiovascular Problems: Yes (CAD) High Cholesterol: Yes Chemotherapy: No Diabetes: Yes (DIET CONTROLLED) Patient Takes Glucophage: No Dialysis: Yes (MWF) Diminished Hearing: No Endocrine: Yes Gastrointestinal Disorders: Yes (HX COLON POLYPS) Glaucoma: No Genitourinary: Yes Hepatitis: No Hiatal Hernia: No Hypertension: Yes Immune Disorder: No Implanted Vascular Access Dvce: Yes (PACEMAKER) Musculoskeletal: No Neurologic: Yes (DIABETIC NEUROPATHY) Psychiatric: No Reproductive: No Respiratory: No Immunizations Current: No Myocardial Infarction: Yes (2001, AND A SECOND ONE) Radiation Therapy: No Renal Failure: Yes (HEMODIALYSIS MWF) Thyroid Disease: No Tetanus Vaccination: Unknown Influenza Vaccination: Yes PNEUMOCCOCAL Vaccine (Year): 1 ?: Not Tubal Ligation: Yes Past Surgical History Abdominal Surgery: No AICD: No Body Medical Devices: AV FISTULA IN LEFT ARM Cardiac Surgery: Yes (PACER) Ear Surgery: No Endocrine Surgery: No Eye Surgery: No Genitourinary Surgery: Yes (DIALYSIS Thu) Gynecologic Surgery: No Joint Replacement: No Oral Surgery: No Pacemaker: Yes Thoracic Surgery: No Other Surgery: Yes (POLYPS REMOVED FROM UTERUS) Social History Alcohol Use: No Tobacco Use: No Substance Use: No Allergies-Medications (Allergen,Severity, Reaction): Coded Allergies: No Known Allergies (Verified , 08/11/16) Reported Meds & Prescriptions Reported Meds & Active Scripts Active Reported Rosanne-Nissa Rx (B-Complex W/ C & Folic Acid) 1 Tab 1 Tab PO DAILY Clonidine (Clonidine HCl) 0.2 Mg Tab 0.2 Mg PO BID Amlodipine (Amlodipine Besylate) 10 Mg Tab 10 Mg PO DAILY Losartan (Losartan Potassium) 100 Mg Tab 100 Mg PO DAILY Atorvastatin (Atorvastatin Calcium) 40 Mg Tab 40 Mg PO HS Pentoxifylline ER (Pentoxifylline) 400 Mg Tab 400 Mg PO DAILY Carvedilol 12.5 Mg Tab 12.5 Mg PO BID Renvela (Sevelamer Carbonate) 800 Mg Tab 1,600 Mg PO TID Doxazosin (Doxazosin Mesylate) 2 Mg Tab 2 Mg PO HS Levothyroxine (Levothyroxine Sodium) 137 Mcg Tab 137 Mcg PO DAILY Aspirin 81 Mg Chew 81 Mg CHEW DAILY Review of Systems Except as stated in HPI: all other systems reviewed are Neg Physical Exam Narrative GENERAL: Well-developed well-nourished, tachypneic and short of breath. SKIN: Focused skin assessment warm/dry. No rash no wound no skin breakdown. HEAD: Atraumatic. Normocephalic. EYES: Pupils equal and round. No scleral icterus. No injection or drainage. ENT: No nasal bleeding or discharge. Mucous membranes pink and moist. NECK: Trachea midline. No JVD. CARDIOVASCULAR: Minimally tachycardic with regular rhythm. No murmur appreciated. 2+ bilateral equal pulses in 4 extremities RESPIRATORY: Accessory muscle use with tachypnea, rales throughout all pickens, retractions intercostally. GASTROINTESTINAL: Abdomen soft, non-tender, nondistended. Hepatic and splenic margins not palpable. MUSCULOSKELETAL: No obvious deformities. No clubbing. No cyanosis. No edema. NEUROLOGICAL: Awake and alert. No obvious cranial nerve deficits. Motor grossly within normal limits. Normal speech. PSYCHIATRIC: Appropriate mood and affect; insight and judgment normal. Data Data Last Documented VS Vital Signs Date Time Temp Pulse Resp B/P Pulse Ox O2 Delivery O2 Flow Rate FiO2 08/11/16 01:58 98.9 75 22 137/63 96 Nasal Cannula 4 08/11/16 00:30 100 Orders Electrocardiogram (08/11/16 00:32) B-Type Natriuretic Peptide (08/11/16 00:32) Ckmb (Isoenzyme) Profile (08/11/16 00:32) Complete Blood Count With Diff (08/11/16 00:32) Comprehensive Metabolic Panel (08/11/16 00:32) Magnesium (Mg) (08/11/16 00:32) Prothrombin Time / Inr (Pt) (08/11/16 00:32) Act Partial Throm Time (Ptt) (08/11/16 00:32) Troponin I (08/11/16 00:32) Chest, Single Ap (08/11/16 00:32) Ecg Monitoring (08/11/16 00:32) Iv Access Insert/Monitor (08/11/16 00:32) Oximetry (08/11/16 00:32) Oxygen Administration (08/11/16 00:32) Sodium Chloride 0.9% Flush (Ns Flush) (08/11/16 00:45) Nicardipine Inj (Cardene Inj) (08/11/16 00:45) Arterial Blood Gas (Abg) (08/11/16 ) Furosemide Inj (Lasix Inj) (08/11/16 01:30) Furosemide Inj (Lasix Inj) (08/11/16 02:15) Admit Order (Ed Use Only) (08/11/16 ) Labs Laboratory Tests Test 08/11/16 08/11/16 00:41 01:13 White Blood Count 6.7 TH/MM3 Red Blood Count 3.30 MIL/MM3 Hemoglobin 9.7 GM/DL Hematocrit 30.1 % Mean Corpuscular Volume 91.4 FL Mean Corpuscular Hemoglobin 29.5 PG Mean Corpuscular Hemoglobin 32.3 % Concent Red Cell Distribution Width 18.1 % Platelet Count 256 TH/MM3 Mean Platelet Volume 9.2 FL Neutrophils (%) (Auto) 55.6 % Lymphocytes (%) (Auto) 36.6 % Monocytes (%) (Auto) 3.3 % Eosinophils (%) (Auto) 3.5 % Basophils (%) (Auto) 1.0 % Neutrophils # (Auto) 3.7 TH/MM3 Lymphocytes # (Auto) 2.4 TH/MM3 Monocytes # (Auto) 0.2 TH/MM3 Eosinophils # (Auto) 0.2 TH/MM3 Basophils # (Auto) 0.1 TH/MM3 CBC Comment DIFF FINAL Differential Comment Prothrombin Time 10.8 SEC Prothromb Time International 1.0 RATIO Ratio Activated Partial 24.3 SEC Thromboplast Time Sodium Level 136 MEQ/L Potassium Level 4.8 MEQ/L Chloride Level 98 MEQ/L Carbon Dioxide Level 27.3 MEQ/L Anion Gap 11 MEQ/L Blood Urea Nitrogen 51 MG/DL Creatinine 9.16 MG/DL Estimat Glomerular Filtration 5 ML/MIN Rate Random Glucose 161 MG/DL Calcium Level 8.0 MG/DL Magnesium Level 2.6 MG/DL Total Bilirubin 0.3 MG/DL Aspartate Amino Transf 46 U/L (AST/SGOT) Alanine Aminotransferase 48 U/L (ALT/SGPT) Alkaline Phosphatase 131 U/L Total Creatine Kinase 87 U/L Troponin I LESS THAN 0.02 NG/ML B-Type Natriuretic Peptide 1217 PG/ML Total Protein 7.8 GM/DL Albumin 3.6 GM/DL Blood Gas Puncture Site RT RADIAL Blood Gas Patient Temperature 98.6 Blood Gas HCO3 25 mmol/L Blood Gas Base Excess 1.4 mmol/L Blood Gas Oxygen Saturation 98 % Arterial Blood pH 7.43 Arterial Blood Partial 39 mmHg Pressure CO2 Arterial Blood Partial 270 mmHG Pressure O2 Arterial Blood Oxygen Content 12.8 Vol % Arterial Blood 1.7 % Carboxyhemoglobin Arterial Blood Methemoglobin 0.5 % Blood Gas Hemoglobin 8.8 G/DL Oxygen Delivery Device BIPAP Blood Gas Ventilator Setting 12IPAP/5EPAP Blood Gas Inspired Oxygen 100 % MDM Medical Decision Making Medical Screen Exam Complete: Yes Emergency Medical Condition: Yes Differential Diagnosis Flash pulmonary edema, hypertensive emergency, fluid overload, CHF, and stage renal disease, electrolyte abnormality, ACS, AMI. Narrative Course Patient was roomed in the emergency department transferred from CPAP to BiPAP machine. Initial settings were 5/12/100%. Has maintained her oxygen saturation about 98%. Blood gas showed a pH is 7.43 with PCO2 of 38. Chest x- ray confirmed the patient had substantial pulmonary edema. Initial blood pressure was much better on BiPAP once obtained in the emergency department, initial orders for Cardene drip were halted. Patient's initial laboratory workup showed anemia with a hemoglobin 9.7 , mild uremia with a BUNs of 51, potassium 4.8, PCO2 27.3, BNP of 1200. The patient continued to improve on BiPAP, she was able to be weaned to nasal cannula, she was discussed with Dr. Noonan who is on-call and recommended the patient be on Lasix and now that she is off BiPAP she can be observed overnight and likely dialyzed in the morning. Recommendations are discussed with the patient and she is agreeable for admission. Patient discussed with Dr. Patterson who is agreeable for admission. Procedures Procedure Narrative Aggregate critical care time was 35 minutes. Time to perform other separately billable procedures was not included in the critical care time. My time did not include minutes spent treating any other patients simultaneously or on activities that did not directly contribute to the patient's treatment. The services I provided to this patient were to treat and/or prevent clinically significant deterioration that could result in: , disability, organ failure. I provided critical care services requiring my management, as noted below: Chart data review, documentation time, medication orders and management, vital sign assessments/reviewing monitor data, ordering and reviewing lab tests, ordering and interpreting/reviewing x-rays and diagnostic studies, care of the patient and discussion of the patient with the admitting physicians. Diagnosis Primary Impression: Hypertensive emergency Additional Impressions: Flash pulmonary edema Acute respiratory failure with hypoxia Admitting Information Admitting Physician Requests: Admit Condition: Naldo Mccloud MD Aug 11, 2016 00:52
[2016-08-11 01:01] LABS: APTT (PATIENT) 24.3 SEC (24.3-30.1); PROTHROMBIN TIME - PATIENT 10.8 SEC (9.8-11.6)
--- NOTE | 2016-08-11 01:02 | RADRPT ---
EXAM DATE/TIME: 08/11/2016 00:38 [facility] COMPARISON: CHEST SINGLE AP, March 15, 2016, 3:29. INDICATIONS : Shortness of breath, respiratory distress. MEDICAL HISTORY : Congestive heart failure. SURGICAL HISTORY : Pacemaker. ENCOUNTER: Initial ACUITY: 1 day PAIN SCORE: 0/10 LOCATION: Bilateral chest FINDINGS: There is slight cardiomegaly and moderate perivascular pulmonary edema. Focal consolidation is not se en. Left subclavian pacer wires are present with tips in the right atrium and right ventricle. CONCLUSION: Moderate CHF. Esa Davis MD on August 11, 2016 at 1:00 Board Certified Radiologist. This report was verified electronically.
[2016-08-11 01:24] LABS: ALKALINE PHOSPHATASE 131 U/L (45-117); ALT (GPT) 48 U/L (10-53); ANION GAP 11 MEQ/L (5-15); AST (GOT) 46 U/L (15-37); BICARBONATE 27.3 MEQ/L (21.0-32.0); BLOOD UREA NITROGEN 51 MG/DL (7-18); CHLORIDE 98 MEQ/L (98-107); GLOMERULAR FILTRATION RATE 5 ML/MIN (>89); MAGNESIUM 2.6 MG/DL (1.5-2.5); POTASSIUM 4.8 MEQ/L (3.5-5.1); SODIUM (NA) 136 MEQ/L (136-145); TOTAL BILIRUBIN ADULT 0.3 MG/DL (0.2-1.0)
[2016-08-11 01:25] LABS: CREATINE KINASE 87 U/L (26-192)
[2016-08-11] MEDS ORDERED: FUROSEMIDE 100 MG/10 ML VIAL IV PUSH ONE (01:30)
[2016-08-11] MEDS ORDERED: FUROSEMIDE 40 MG/4 ML VIAL IV PUSH ONE (02:15)
--- NOTE | 2016-08-11 02:41 | HHI.HP ---
HPI Service Critical Care Medicine Primary Care Physician Costa Youngblood MD Admission Diagnosis Pulmonary Edema Diagnosis: Travel History International Travel<30 Days: No Contact w/Intl Traveler <30 Da: No Traveled to Known Affected Are: No History of Present Illness 80-year-old with a past medical history of end-stage renal disease on hemodialysis x8 years(Thursday/Thursday/Thursday) , hypertension, diet controlled diabetes, pacemaker, hypothyroidism, diet-controlled diabetes, chronic systolic and diastolic heart failure. She states that tonight she was sitting on the side of the bed and she developed shortness of breath. She denies any chest pain, palpitations, cough, sputum production or fever. Sats were in the 80s on E VAC arrival and she was placed on CPAP. Systolic blood pressure was 240 per EVAC . She was given nitroglycerin 0.4 mg sublingual. She was transitioned to BiPAP when she arrived to the emergency department. BP had improved to 159/78 upon arrival. She is followed by Dr. Jeremias Eid as an outpatient and her last HD session was 07/08/16 and she states they removed "1 point something" kg. She states they have not in removing as much fluid at dialysis over the last few weeks because she had lost some weight after doing a liquid diet during a colonoscopy prep 07/31. She has not noticed any peripheral edema. ED workup includes chest x-ray showing cardiomegaly and pulmonary edema, potassium of 4.8 , troponin 0.02, BNP 1217. Past Family Social History Allergies: Coded Allergies: No Known Allergies (Verified , 08/11/16) Past Medical History Hypertension Diet controlled diabetes mellitus Hypothyroidism End-stage renal disease on hemodialysis 8 years Chronic systolic and diastolic heart failure Echo ejection fraction 50%, LVH, diastolic dysfunction. Valves appear normal Peripheral arterial disease Hyperlipidemia Past Surgical History Pacemaker placement. Pacemaker was replaced about a year ago AV fistula left upper extremity about 8 years ago Bilateral cataract removal Hysteroscopy and D&C 09/04/11 (Dr. Jean) Colonoscopy Reported Medications Doxazosin 2 mg by mouth daily at bedtime Losartan 100 mg by mouth daily Carvedilol 12.5 mg by mouth twice a day Clonidine 0.2 g by mouth twice a day Amlodipine 10 mill grams by mouth daily Pentoxifilline ER 400 mg po daily Atorvastatin 40 g by mouth daily at bedtime Aspirin 81 mg daily Renvela 1600 mg by mouth 3 times a day Levothyroxin 137 g by mouth daily B vitamins and folic acid daily Family History No family history of cardiac or renal disease in her parents. Social History She has a [id number] history of smoking and quit in 1984 No alcohol or illicit drug use Physical Exam Vital Signs Vital Signs Date Time Temp Pulse Resp B/P Pulse Ox O2 Delivery O2 Flow Rate FiO2 08/11/16 01:58 98.9 75 22 137/63 96 Nasal Cannula 4 08/11/16 01:30 100 Nasal Cannula 4.00 08/11/16 00:44 74 23 161/72 100 BiPAP 08/11/16 00:35 98 BiPAP 08/11/16 00:30 79 32 159/78 98 08/11/16 00:30 32 100 BiPAP Physical Exam GENERAL: Very pleasant elderly female who is laying in the ED stretcher bundled up in multiple blankets. SKIN: Warm and dry, well perfused. No diaphoresis. HEAD: Atraumatic. Normocephalic. EYES: Pupils equal and round, 3 mm and reactive bilaterally.. No scleral icterus. No injection or drainage. ENT: No nasal bleeding or discharge. Mucous membranes pink and moist. NECK: Trachea midline. No JVD. CARDIOVASCULAR: Regular rate and rhythm, +S3 . No murmurs or rubs. RESPIRATORY: Breathing comfortably without accessory muscle use. Basilar Rales. No wheeze or rhonchi. Hasn't taken off BiPAP on 4 L nasal cannula with sats 96% GASTROINTESTINAL: Abdomen soft, non-tender, nondistended. Bowel sounds present. MUSCULOSKELETAL: Extremities without clubbing, cyanosis, or edema. VASC: LUE with AV fistula with +thrill. NEUROLOGICAL: Awake and alert. No obvious cranial nerve deficits. Motor grossly within normal limits. Five out of 5 muscle strength in the arms and legs. Normal speech. Laboratory Laboratory Tests Test 08/11/16 00:41 White Blood Count 6.7 Red Blood Count 3.30 Hemoglobin 9.7 Hematocrit 30.1 Mean Corpuscular Volume 91.4 Mean Corpuscular Hemoglobin 29.5 Mean Corpuscular Hemoglobin 32.3 Concent Red Cell Distribution Width 18.1 Platelet Count 256 Mean Platelet Volume 9.2 Neutrophils (%) (Auto) 55.6 Lymphocytes (%) (Auto) 36.6 Monocytes (%) (Auto) 3.3 Eosinophils (%) (Auto) 3.5 Basophils (%) (Auto) 1.0 Neutrophils # (Auto) 3.7 Lymphocytes # (Auto) 2.4 Monocytes # (Auto) 0.2 Eosinophils # (Auto) 0.2 Basophils # (Auto) 0.1 CBC Comment DIFF FINAL Differential Comment Prothrombin Time 10.8 Prothromb Time International 1.0 Ratio Activated Partial 24.3 Thromboplast Time Sodium Level 136 Potassium Level 4.8 Chloride Level 98 Carbon Dioxide Level 27.3 Anion Gap 11 Blood Urea Nitrogen 51 Creatinine 9.16 Estimat Glomerular Filtration 5 Rate Random Glucose 161 Calcium Level 8.0 Magnesium Level 2.6 Total Bilirubin 0.3 Aspartate Amino Transf 46 (AST/SGOT) Alanine Aminotransferase 48 (ALT/SGPT) Alkaline Phosphatase 131 Total Creatine Kinase 87 Troponin I LESS THAN 0.02 B-Type Natriuretic Peptide 1217 Total Protein 7.8 Albumin 3.6 Result Diagram: 08/11/164008/11/16 004 Assessment and Plan Problem List: (1) Pulmonary edema ICD Code: J81.1 Status: Acute (2) ESRD (end stage renal disease) ICD Code: N18.6 Status: Chronic (3) Flash pulmonary edema ICD Code: J81.0 Status: Acute (4) Acute respiratory failure with hypoxia ICD Code: J96.01 Status: Acute (5) Hypertensive emergency ICD Code: I16.1 Status: Acute (6) Fluid overload ICD Code: E87.70 Status: Acute (7) Anemia ICD Code: D64.9 Status: Chronic (8) Pacemaker ICD Code: Z95.0 Status: Acute (9) Chronic combined systolic and diastolic CHF (congestive heart failure) ICD Code: I50.42 Status: Chronic (10) Hyperlipidemia ICD Code: E78.5 Status: Chronic (11) Diabetes mellitus ICD Code: E11.9 Status: Chronic (12) Hypothyroidism ICD Code: E03.9 Status: Chronic Assessment and Plan NEURO: No acute neurologic issues RESP: Acute hypoxemic respiratory failure on arrival (improved) Was on BiPAP in the emergency department. Now off BiPAP and on nasal cannula which will wean as tolerated. Pulmonary edema, Volume overload Chest x-ray 08/11/16cardiomegaly and pulmonary edema CV: Hypertension Hypertensive emergency Chronic systolic and diastolic heart failure Pacemaker in place Hyperlipidemia Peripheral arterial disease Nicardipine drip was ordered in the emergency department but was never required. Blood pressure improved after nitroglycerin per E VAC. Will continue nitroglycerin 1 inch paste every 6 hours until after dialysis. Continue doxazosin to milligrams by mouth daily at bedtime, losartan 100 mg by mouth daily, carvedilol 12.5 mill grams by mouth twice a day, clonidine 0.2 g by mouth twice a day, Norvasc 10 mg by mouth daily Continue aspirin 81 mg daily Continue pentoxifylline 100 mill grams by mouth daily for claudication Continue statin troponin negative. No chest pain. EKG a-paced, nonspecific lateral ST change. GI: Renal diet, 1800 ADA FEN/RENAL: ESRD on hemodialysis Thursday, Thursday, Thursday Consult nephrology for hemodialysis. She is followed by Dr. Tucker Eid and left upper extremity AV fistula in place. Continue Renvela 1600 mg by mouth 3 times a day ID: Monitor for signs and symptoms of infection. No leukocytosis or fever. HEME: Chronic anemia ENDO: Diet controlled diabetes mellitus Hypothyroidism 1800 ADA diet. Continue Synthroid 137 micrograms by mouth daily PROPH: SCDs, heparin 5000 units subcutaneous every 12 hours for DVT prophylaxis. Protonix 40 milligrams by mouth today for stress ulcer prophylaxis. After that stress ulcer prophylaxis will not be indicated. ACCESS: Peripheral IV providing adequate access at this time. Patient presented with hypertensive emergency, pulmonary edema, respiratory distress and hypoxemic respiratory failure. She is improving but is at risk for recurrent flash pulmonary edema and respiratory failure until she receives hemodialysis. Have consulted nephrology for hemodialysis today. Then plan to transfer to floor ; hospitalist to assume care on 08/12. Level III H&P Problem Qualifiers (1) Diabetes mellitus: Apple Ptaterson MD Aug 11, 2016 02:41
[2016-08-11 02:52] LABS: BLOOD GAS BASE EXCESS 1.4 mmol/L (-2-2); BLOOD GAS CARBOXYHEMOGLOBIN 1.7 % (0-4); BLOOD GAS HCO3 25 mmol/L (22-26); BLOOD GAS METHEMOGLOBIN 0.5 % (0-2); BLOOD GAS O2 HGB SATURATION 98 % (90-100); BLOOD GAS OXYGEN CONTENT 12.8 Vol % (12.0-20.0); BLOOD GAS PCO2 39 mmHg (38-42); BLOOD GAS PO2 270 mmHG (61-120); BLOOD GAS TOTAL HGB 8.8 G/DL (12.0-16.0); CRITICAL VALUE NO; OXYGEN DEVICE BIPAP; TEMP CORR TO 98.6; VENT SETTINGS 12IPAP/5EPAP
[2016-08-11 02:53] LABS: DRAW SITE RT RADIAL; FIO2 100 %; NUMBER OF ARTERIAL PUNCTURES 1; STAT YES; ULNAR PULSE PRESENT
[2016-08-11] MEDS ORDERED: LACTULOSE SYRUP 20 GM/30 ML CUP PO PRN (03:00)
[2016-08-11] MEDS ORDERED: SODIUM CHLORIDE 0.9% FLUSH 10 ML FLUSH IV FLUSH PRN ×2 (03:00→09:00)
[2016-08-11] MEDS ORDERED: MISCELLANEOUS NURSING INFORMATION XX SCH (03:00)
[2016-08-11] MEDS ORDERED: ACETAMINOPHEN/HYDROcodone 325 MG/5 MG TAB PO PRN (03:00)
[2016-08-11] MEDS ORDERED: CHLORHEXIDINE GLUCONATE 2 % 1 PACK (2 CLOTHS) TOP PRN (03:00)
[2016-08-11] MEDS ORDERED: MAGNESIUM HYDROXIDE SUSP 30 ML CUP PO PRN (03:00)
[2016-08-11] MEDS ORDERED: SENNOSIDES 8.6 MG TAB PO PRN (03:00)
[2016-08-11] MEDS ORDERED: MORPHINE SULFATE 4 MG/ML INJ IV PRN (03:00)
[2016-08-11] MEDS ORDERED: ACETAMINOPHEN 325 MG TAB PO PRN ×2 (03:00→09:00)
[2016-08-11] MEDS ORDERED: ONDANSETRON HCL 4 MG/2 ML VIAL IV PRN ×2 (03:00→09:00)
[2016-08-11] MEDS ORDERED: BISACODYL 10 MG SUPP RECTAL PRN (03:00)
[2016-08-11] MEDS ORDERED: RESP: ALBUTEROL 2.5 MG/3 ML NEB (PRN) INH (03:00)
[2016-08-11] MEDS: HEPARIN SODIUM - SQ 10,000 UNITS/ML VIAL SQ SCH ×2 (03:25→15:00)
[2016-08-11] MEDS: NITROGLYCERIN 2% OINT 1 GM PACKET TOPICAL SCH ×4 (03:25→18:00)
[2016-08-11] MEDS ORDERED: PANTOPRAZOLE SOD 40 MG DELAYED RELEASE TAB PO ONE (03:45)
[2016-08-11] MEDS: CHLORHEXIDINE GLUCONATE 2 % 1 PACK (2 CLOTHS) TOP SCH (04:00)
[2016-08-11] MEDS: LEVOTHYROXINE SODIUM 112 MCG TAB PO SCH (05:30)
[2016-08-11] MEDS: LEVOTHYROXINE SODIUM 25 MCG TAB PO SCH (05:30)
--- NOTE | 2016-08-11 08:20 | HHI.PR ---
Subjective Remarks pt on bipap 02/03 oriented and following commands Objective Vitals bipap following commands heart reg lung crackles bases abd s/nt ext no edema Vital Signs Date Time Temp Pulse Resp B/P Pulse Ox O2 Delivery O2 Flow Rate FiO2 08/11/16 08:05 100 40 08/11/16 06:00 75 08/11/16 04:10 96 Bi-Pap 40 08/11/16 04:07 95 40 08/11/16 04:00 75 08/11/16 04:00 88 Nasal Cannula 4.00 08/11/16 03:54 98.5 79 20 183/88 90 08/11/16 03:11 77 24 177/81 98 Nasal Cannula 3 08/11/16 01:58 98.9 75 22 137/63 96 Nasal Cannula 4 08/11/16 01:30 100 Nasal Cannula 4.00 08/11/16 00:44 74 23 161/72 100 BiPAP 08/11/16 00:35 98 BiPAP 08/11/16 00:30 79 32 159/78 98 08/11/16 00:30 100 100 08/11/16 00:30 32 100 BiPAP 08/10/16 08/10/16 08/11/16 15:00 23:00 07:00 Intake Total 0 ml Balance 0 ml Intake Oral 0 ml # Voids 0 # Bowel Movements 0 Result Diagram: 08/11/16 0041 08/11/16 0041 A/P Problem List: (1) Acute respiratory failure with hypoxia Status: Acute Plan: Pt with esrd on HD m/w/f Pt says has been taking less volume with recent c-scope Presents with sob/pulmonary edema/htn currently on bipap renal consulted. awaiting HD resume home bp meds and prn. pt was given ntg paste overnight. dvt prophylaxis transfer out of icu after HD if off bipap (2) ESRD (end stage renal disease) Status: Chronic Plan: see above (3) Pulmonary edema Status: Acute Plan: see above (4) Hypertensive emergency Status: Acute Plan: see above (5) Chronic combined systolic and diastolic CHF (congestive heart failure) Status: Chronic (6) Hypothyroidism Status: Chronic Waylon Santiago MD Aug 11, 2016 08:20
[2016-08-11] MEDS ORDERED: ALBUMIN HUMAN 25% 25 GM/100 ML BAGP IV PRN (09:00)
[2016-08-11] MEDS ORDERED: NITROGLYCERIN 0.4 MG SL 25 TABS/BTL SL PRN (09:00)
[2016-08-11] MEDS ORDERED: SODIUM CHLOR 0.9% 1000 ML INJ 1,000 ML IV PRN ×3 (09:00)
[2016-08-11] MEDS ORDERED: HEPARIN SODIUM - IV 10,000 UNITS/10 ML VIAL PRN (09:00)
[2016-08-11] MEDS ORDERED: cloNIDine HCL 0.1 MG TAB PO PRN (09:00)
[2016-08-11] MEDS ORDERED: EPOETIN ALFA 10,000 UNITS/ML VIAL IV PRN (09:00)
[2016-08-11] MEDS ORDERED: GENTAMICIN SULFATE (DIALYSIS USE ONLY) 20 MG/2 ML VIAL IV PRN (09:00)
[2016-08-11] MEDS ORDERED: HEPARIN SODIUM - IV 10,000 UNITS/10 ML VIAL IVF PRN (09:00)
[2016-08-11] MEDS ORDERED: GELATIN 12 MM/7 MM FOAM TOP PRN (09:00)
[2016-08-11] MEDS ORDERED: MANNITOL 12.5 GM/50 ML VIAL IV PRN (09:00)
[2016-08-11] MEDS ORDERED: diphenhydrAMINE HCL 25 MG CAP PO PRN (09:00)
[2016-08-11] MEDS ORDERED: PANTOPRAZOLE SODIUM 40 MG VIAL IV SCH (09:00)
--- NOTE | 2016-08-11 11:39 | PD.CONS ---
HPI Service Nephrology Consult Requested By Reason for Consult ESRD on HD Primary Care Physician Costa Youngblood MD History of Present Illness This is an 81 y/o dialysis patient with whom we follow outpatient. Typical HD MWF, had treatment thursday but only approximately one liter was removed. She has been losing weight recently and recently had colonoscopy for anemia work up. She came to ER for shortness of breath. She does not report chest pain. BP was also elevated on arrival but it has improved. PMH listed below includes HTN, hyperlipidemia, anemia, metabolic bone disease. She is on BiPap during my exam, also on bedside dialysis. We were consulted for dialysis management, she is a full code. (Monica Bella) Review of Systems Constitutional: COMPLAINS OF: Fatigue, Weight loss, DENIES: Weight gain Respiratory: COMPLAINS OF: Shortness of breath, DENIES: Cough, Sputum production Cardiovascular: COMPLAINS OF: Dyspnea on Exertion, DENIES: Chest pain, Lower Extremity Edema, Orthopnea (Monica Bella) Past Family Social History Allergies: Coded Allergies: No Known Allergies (Verified , 08/11/16) Past Medical History ESRD on HD MWF Hypertension DM II, diet controlled Hypothyroidism Anemia metabolic bone disorder Chronic systolic and diastolic heart failure Echo ejection fraction 50%, LVH, diastolic dysfunction. Valves appear normal Peripheral arterial disease Hyperlipidemia Past Surgical History Pacemaker placement. Pacemaker was replaced about a year ago AV fistula left upper extremity about 8 years ago Bilateral cataract removal Hysteroscopy and D&C 09/04/11 (Dr. Jean) Colonoscopy Reported Medications Doxazosin 2 mg by mouth daily at bedtime Losartan 100 mg by mouth daily Carvedilol 12.5 mg by mouth twice a day Clonidine 0.2 g by mouth twice a day Amlodipine 10 mill grams by mouth daily Pentoxifilline ER 400 mg po daily Atorvastatin 40 g by mouth daily at bedtime Aspirin 81 mg daily Renvela 1600 mg by mouth 3 times a day Levothyroxin 137 g by mouth daily B vitamins and folic acid daily Active Ordered Medications Current Medications Medications (Trade) Dose Ordered Sig/Tamar Route Start Time Stop Time Status Last Admin (Norvasc) 10 mg DAILY PO 08/11/16 09:00 (Aspirin Chew) 81 mg DAILY CHEW 08/11/16 09:00 (Lipitor) 40 mg HS PO 08/11/16 21:00 (Coreg) 12.5 mg BID PO 08/11/16 09:00 (Catapres) 0.2 mg BID PO 08/11/16 09:00 (Cardura) 2 mg HS PO 08/11/16 21:00 (Cozaar) 100 mg DAILY PO 08/11/16 09:00 (TRENtal SR) 400 mg DAILY PO 08/11/16 09:00 (Renvela) 1,600 mg TID PO 08/11/16 09:00 (Synthroid) 112 mcg DAILY@07 PO 08/11/16 07:00 08/11/16 05:30 (NS Flush) 2 ml UNSCH PRN IV FLUSH 08/11/16 03:00 (NS Flush) 2 ml BID IV FLUSH 08/11/16 09:00 (Tylenol) 650 mg Q6H PRN PO 08/11/16 03:00 (Parker 5-325 Mg) 1 tab Q4H PRN PO 08/11/16 03:00 (Morphine Inj) 2 mg Q2H PRN IV 08/11/16 03:00 (Zofran Inj) 4 mg Q6H PRN IV 08/11/16 03:00 (Heparin Inj) 5,000 units Q12H SQ 08/11/16 03:00 08/11/16 03:25 Miscellaneous Information 1 Q361D XX 08/11/16 03:00 08/11/16 03:00 (Chlorhexidine 2% Cloth) 3 pack Taper DAILY@04 TOP 08/11/16 04:00 08/07/17 03:59 08/11/16 04:00 (Chlorhexidine 2% Cloth) 3 pack UNSCH PRN TOP 08/11/16 03:00 (Shanel-Colace) 1 tab BID PO 08/11/16 09:00 (Milk Of Magnesia Liq) 30 ml Q12H PRN PO 08/11/16 03:00 (Senokot) 17.2 mg Q12H PRN PO 08/11/16 03:00 (Dulcolax Supp) 10 mg DAILY PRN RECTAL 08/11/16 03:00 (Lactulose Liq) 30 ml DAILY PRN PO 08/11/16 03:00 (Synthroid) 25 mcg DAILY@07 PO 08/11/16 07:00 08/11/16 05:30 (Nitroglycerin 2% Oint) 1 inch Q6HR TOPICAL 08/11/16 03:00 08/11/16 05:31 Pantoprazole Sodium 40 mg 40 mg DAILY PO 08/11/16 09:00 (NS 1000 ml Inj) 1,000 ml @ 0 mls/hr Q0M PRN IV 08/11/16 09:00 Heparin Sodium (Porcine) 8000 units 8,000 units UNSCH PRN IVF 08/11/16 09:00 Sodium Chloride 1,000 ml @ 200 mls/hr Q5H PRN IV 08/11/16 09:00 (NS 1000 ml Inj) 1,000 ml @ 0 mls/hr Q0M PRN IV 08/11/16 09:00 (Mannitol Inj) 12.5 gm UNSCH PRN IV 08/11/16 09:00 (Albumin 25% Inj) 25 gm UNSCH PRN IV 08/11/16 09:00 08/11/16 09:27 (NS Flush) 5 ml UNSCH PRN IV FLUSH 08/11/16 09:00 (Heparin Inj) UNSCH PRN .XX 08/11/16 09:00 (Gentamicin (Dialysis) Inj) 20 mg UNSCH PRN IV 08/11/16 09:00 (Zofran Inj) 4 mg UNSCH PRN IV 08/11/16 09:00 (Tylenol) 650 mg UNSCH PRN PO 08/11/16 09:00 (Benadryl) 25 mg UNSCH PRN PO 08/11/16 09:00 (Nitrostat Sl) 0.4 mg UNSCH PRN SL 08/11/16 09:00 (Catapres) 0.1 mg UNSCH PRN PO 08/11/16 09:00 (Epogen Inj) 10,000 units UNSCH PRN IV 08/11/16 09:00 08/11/16 11:05 (Gelfoam 12 Mm/7 Mm Top) 1 foam UNSCH PRN TOP 08/11/16 09:00 08/11/16 11:06 Family History no hx of renal disorders Social History no smoking or ETOH independent retired she is full code (Monica Bella) Physical Exam Vital Signs Vital Signs Date Time Temp Pulse Resp B/P Pulse Ox O2 Delivery O2 Flow Rate FiO2 08/11/16 10:02 100 40 08/11/16 08:05 100 40 08/11/16 08:00 78 08/11/16 06:00 75 08/11/16 04:10 96 Bi-Pap 40 08/11/16 04:07 95 40 08/11/16 04:00 75 08/11/16 04:00 88 Nasal Cannula 4.00 08/11/16 03:54 98.5 79 20 183/88 90 08/11/16 03:11 77 24 177/81 98 Nasal Cannula 3 08/11/16 01:58 98.9 75 22 137/63 96 Nasal Cannula 4 08/11/16 01:30 100 Nasal Cannula 4.00 08/11/16 00:44 74 23 161/72 100 BiPAP 08/11/16 00:35 98 BiPAP 08/11/16 00:30 79 32 159/78 98 08/11/16 00:30 100 100 08/11/16 00:30 32 100 BiPAP Physical Exam Elderly AAF lying in bed, awake and oriented on BiPap, scattered rales S1/S2, RRR, blood pressure has normalized Abdomen soft, non tender Ext: no edema, LUE AVF accessed during HD anuric at baseline Laboratory Laboratory Tests Test 08/11/16 08/11/16 08/11/16 00:41 01:13 03:55 White Blood Count 6.7 Red Blood Count 3.30 Hemoglobin 9.7 Hematocrit 30.1 Mean Corpuscular Volume 91.4 Mean Corpuscular Hemoglobin 29.5 Mean Corpuscular Hemoglobin 32.3 Concent Red Cell Distribution Width 18.1 Platelet Count 256 Mean Platelet Volume 9.2 Neutrophils (%) (Auto) 55.6 Lymphocytes (%) (Auto) 36.6 Monocytes (%) (Auto) 3.3 Eosinophils (%) (Auto) 3.5 Basophils (%) (Auto) 1.0 Neutrophils # (Auto) 3.7 Lymphocytes # (Auto) 2.4 Monocytes # (Auto) 0.2 Eosinophils # (Auto) 0.2 Basophils # (Auto) 0.1 CBC Comment DIFF FINAL Differential Comment Prothrombin Time 10.8 Prothromb Time International 1.0 Ratio Activated Partial 24.3 Thromboplast Time Sodium Level 136 Potassium Level 4.8 Chloride Level 98 Carbon Dioxide Level 27.3 Anion Gap 11 Blood Urea Nitrogen 51 Creatinine 9.16 Estimat Glomerular Filtration 5 Rate Random Glucose 161 Calcium Level 8.0 Magnesium Level 2.6 Total Bilirubin 0.3 Aspartate Amino Transf 46 (AST/SGOT) Alanine Aminotransferase 48 (ALT/SGPT) Alkaline Phosphatase 131 Total Creatine Kinase 87 Troponin I LESS THAN 0.02 B-Type Natriuretic Peptide 1217 Total Protein 7.8 Albumin 3.6 Blood Gas Puncture Site RT RADIAL Blood Gas Patient Temperature 98.6 Blood Gas HCO3 25 Blood Gas Base Excess 1.4 Blood Gas Oxygen Saturation 98 Arterial Blood pH 7.43 Arterial Blood Partial 39 Pressure CO2 Arterial Blood Partial 270 Pressure O2 Arterial Blood Oxygen Content 12.8 Arterial Blood 1.7 Carboxyhemoglobin Arterial Blood Methemoglobin 0.5 Blood Gas Hemoglobin 8.8 Oxygen Delivery Device BIPAP Blood Gas Ventilator Setting 12IPAP/5EPAP Blood Gas Inspired Oxygen 100 Nasal Screen MRSA (PCR) MRSA NOT DETECTED (Monica Bella) Result Diagram: 08/11/16 0041 08/11/16 0041 Imaging Last 72 hours Impressions Chest X-Ray 08/11/16 0032 Signed Impressions: Service Date/Time: Thursday, August 11, 2016 00:38 - CONCLUSION: Moderate CHF. K. Rafi Davis MD (Monica Bella) Assessment and Plan Problem List: (1) ESRD (end stage renal disease) Plan: seen during dialysis on a 2K, 300 BFR, goal 4L continue MWF HD support no acute electrolyte issues she has functioning HD access at this time continue current plan, avoid IVF and gadolinium intermittent renal panel (2) Shortness of breath Plan: likely due to fluid overload ween off BiPap when able adjust UF as tolerated with dialysis for symptom management (3) Anemia Plan: resume epogen with dialysis (4) Hypertensive emergency Plan: improved, resume home medications and monitor effect (5) Metabolic bone disease Plan: on renvela, check phosphorus in am (Monica Bella) Assessment and Plan patient was seen and examined during dialysis. Agree with above assessment and plan. Patient's dry weight needs to be adjusted downwards, I believe she has lost body weight. Monitor after fluid removal in dialysis. (Hemant Azul MD) Monica Bella Aug 11, 2016 11:39 Hemant Azul MD Aug 12, 2016 14:53
[2016-08-11] MEDS: SEVELAMER CARBONATE 800 MG TAB PO SCH ×3 (12:56→18:23)
[2016-08-11] MEDS: cloNIDine HCL 0.2 MG TAB PO SCH ×2 (13:00→20:22)
[2016-08-11] MEDS: ASPIRIN 81 MG CHEW TAB CHEW SCH ×2 (13:01→13:35)
[2016-08-11] MEDS: CARVEDILOL 12.5 MG TAB PO SCH ×2 (13:01→20:22)
[2016-08-11] MEDS: SODIUM CHLORIDE 0.9% FLUSH 10 ML FLUSH IV FLUSH SCH ×2 (13:01→20:21)
[2016-08-11] MEDS: PANTOPRAZOLE SOD 40 MG DELAYED RELEASE TAB PO SCH (13:34)
[2016-08-11] MEDS: DOCUSATE SODIUM 50 MG/SENNA 8.6 MG TAB PO SCH ×2 (13:35→20:22)
[2016-08-11] MEDS: LOSARTAN 50 MG TAB PO SCH (13:36)
--- NOTE | 2016-08-11 13:46 | EKG ---
Date Performed: 08/11/2016 Time Performed: 00:34:58 PTAGE: 81 years EK% atrial pacing Nonspecific ST-T wave changes A major change from the prior tracing PREVIOUS TRACING : 03/14/2016 08.15 DOCTOR: Caden Toro Interpretating Date/Time 08/11/2016 13:46:34
[2016-08-11] MEDS: PENTOXIFYLLINE 400 MG CONTROLLED RELEASE TAB PO SCH (18:22)
[2016-08-11] MEDS ORDERED: DOXAZOSIN MESYLATE 2 MG TAB PO SCH (21:00)
[2016-08-11] MEDS ORDERED: ATORVASTATIN 40 MG TAB PO SCH (21:00)
[2016-08-12] VITALS (7 sets, daily range): BP systolic 120–150; BP diastolic 57–70; PULSE 71–78; RESP 17–23; TEMP 98.3–99; O2SAT 97–100
[2016-08-12] MEDS: NITROGLYCERIN 2% OINT 1 GM PACKET TOPICAL SCH ×2 (00:47→06:02)
[2016-08-12] MEDS: HEPARIN SODIUM - SQ 10,000 UNITS/ML VIAL SQ SCH (03:36)
[2016-08-12] MEDS: CHLORHEXIDINE GLUCONATE 2 % 1 PACK (2 CLOTHS) TOP SCH (03:36)
[2016-08-12 05:12] LABS: ANION GAP 11 MEQ/L (5-15); BICARBONATE 29.6 MEQ/L (21.0-32.0); BLOOD UREA NITROGEN 32 MG/DL (7-18); CHLORIDE 96 MEQ/L (98-107); GLOMERULAR FILTRATION RATE 6 ML/MIN (>89); POTASSIUM 3.8 MEQ/L (3.5-5.1); SODIUM (NA) 137 MEQ/L (136-145); TRANSFERRIN IRON PROFILE 154 MG/DL (200-360)
[2016-08-12] MEDS: LEVOTHYROXINE SODIUM 112 MCG TAB PO SCH (06:02)
[2016-08-12] MEDS: LEVOTHYROXINE SODIUM 25 MCG TAB PO SCH (06:02)
--- NOTE | 2016-08-12 08:23 | HHI.PR ---
Subjective Remarks doing well. breathing essentially baseline. Objective Vitals heart reg lung good air entry abd s/nt ext no edema 4lnc Vital Signs Date Time Temp Pulse Resp B/P Pulse Ox O2 Delivery O2 Flow Rate FiO2 08/12/16 06:00 75 08/12/16 04:00 74 08/12/16 04:00 98.3 74 17 150/70 100 08/12/16 04:00 100 Nasal Cannula 4.00 08/12/16 02:00 73 08/12/16 00:00 99.0 78 23 120/57 97 08/12/16 00:00 97 Nasal Cannula 4.00 08/12/16 00:00 78 08/11/16 22:00 73 08/11/16 20:00 98.6 70 20 144/65 100 08/11/16 20:00 70 08/11/16 20:00 100 Nasal Cannula 4.00 08/11/16 18:00 72 08/11/16 18:00 100 Nasal Cannula 4.00 08/11/16 16:00 98.1 72 28 158/69 100 08/11/16 16:00 100 Nasal Cannula 4.00 08/11/16 16:00 77 08/11/16 14:00 100 Nasal Cannula 4.00 08/11/16 14:00 79 08/11/16 12:00 79 08/11/16 12:00 98.0 80 19 153/67 100 08/11/16 12:00 100 Nasal Cannula 4.00 08/11/16 10:02 100 40 08/11/16 10:00 80 08/11/16 08/11/16 08/12/16 15:00 23:00 07:00 Intake Total 480 ml 100 ml 100 ml Output Total 4000 ml Balance -3520 ml 100 ml 100 ml Intake Oral 480 ml 100 ml 100 ml Output Hemodialysis 4000 ml # Voids 0 # Bowel Movements 0 Result Diagram: 08/11/16 0041 08/12/16 0407 A/P Problem List: (1) Acute respiratory failure with hypoxia Status: Acute Plan: Pt with esrd on HD m/w/f Pt says has been taking less volume with recent c-scope Presents with sob/pulmonary edema/htn Pt reports less fluid removal with HD last week due to diet change and c scope currently off bipap. on 4lnc but sats are 100% wean off oxygen PT and ambulation assessment today transfer to med/surg renal following. s/p HD 08/11 d/c ntg paste dvt prophylaxis (2) ESRD (end stage renal disease) Status: Chronic Plan: see above (3) Pulmonary edema Status: Acute Plan: see above (4) Hypertensive emergency Status: Acute Plan: see above (5) Chronic combined systolic and diastolic CHF (congestive heart failure) Status: Chronic (6) Hypothyroidism Status: Chronic Waylon Santiago MD Aug 12, 2016 08:23
[2016-08-12] MEDS: CARVEDILOL 12.5 MG TAB PO SCH (08:55)
[2016-08-12] MEDS: cloNIDine HCL 0.2 MG TAB PO SCH (08:55)
[2016-08-12] MEDS: DOCUSATE SODIUM 50 MG/SENNA 8.6 MG TAB PO SCH (08:55)
[2016-08-12] MEDS: PANTOPRAZOLE SOD 40 MG DELAYED RELEASE TAB PO SCH (08:55)
[2016-08-12] MEDS: SEVELAMER CARBONATE 800 MG TAB PO SCH (08:55)
[2016-08-12] MEDS: PENTOXIFYLLINE 400 MG CONTROLLED RELEASE TAB PO SCH (08:55)
[2016-08-12] MEDS: LOSARTAN 50 MG TAB PO SCH (08:56)
[2016-08-12] MEDS: SODIUM CHLORIDE 0.9% FLUSH 10 ML FLUSH IV FLUSH SCH (08:56)
--- NOTE | 2016-08-12 09:08 | HHI.DCPOC ---
Discharge Care Plan Diagnosis: (1) ESRD (end stage renal disease) (2) Acute respiratory failure with hypoxia (3) Hypertensive emergency (4) Fluid overload (5) Diabetes mellitus (6) Hypothyroidism (7) Chronic combined systolic and diastolic CHF (congestive heart failure) Goals to Promote Your Health * To prevent worsening of your condition and complications * To maintain your health at the optimal level Directions to Meet Your Goals Take your medications as prescribed Follow your dietary instruction Follow activity as directed Keep your appointments as scheduled Take your immunizations and boosters as scheduled If your symptoms worsen call your PCP, if no PCP go to Urgent Care Center or Emergency Room Smoking is Dangerous to Your Health. Avoid second hand smoke Call the 24-hour hour crisis hotline for domestic abuse at Waylon Santiago MD Aug 12, 2016 09:08
--- NOTE | 2016-08-12 09:30 | HHI.NPPN ---
Subjective Complaints: Obesity, Shortness of Breath General Problems: Anemia Renal Failure: Chronic, End Stage Renal Disease Interval History Dialysis went well yesterday. Breathing has improved. (Monica Bella) Review of Systems Respiratory Lungs: SOB Respiratory Remarks mostly resolved (Monica Bella) Objective Data Data 08/11/16 08/12/16 19:00 07:00 Intake Total 480 ml 200 ml Output Total 4000 ml Balance -3520 ml 200 ml Intake Oral 480 ml 200 ml Output Hemodialysis 4000 ml # Voids 0 # Bowel Movements 0 Vital Signs Date Time Temp Pulse Resp B/P Pulse Ox O2 Delivery O2 Flow Rate FiO2 08/12/16 08:00 71 08/12/16 08:00 100 Nasal Cannula 4.00 08/12/16 07:49 100 Nasal Cannula 4.00 08/12/16 06:00 75 08/12/16 04:00 74 08/12/16 04:00 98.3 74 17 150/70 100 08/12/16 04:00 100 Nasal Cannula 4.00 08/12/16 02:00 73 08/12/16 00:00 99.0 78 23 120/57 97 08/12/16 00:00 97 Nasal Cannula 4.00 08/12/16 00:00 78 08/11/16 22:00 73 08/11/16 20:00 98.6 70 20 144/65 100 08/11/16 20:00 70 08/11/16 20:00 100 Nasal Cannula 4.00 08/11/16 18:00 72 08/11/16 18:00 100 Nasal Cannula 4.00 08/11/16 16:00 98.1 72 28 158/69 100 08/11/16 16:00 100 Nasal Cannula 4.00 08/11/16 16:00 77 08/11/16 14:00 100 Nasal Cannula 4.00 08/11/16 14:00 79 08/11/16 12:00 79 08/11/16 12:00 98.0 80 19 153/67 100 08/11/16 12:00 100 Nasal Cannula 4.00 08/11/16 10:02 100 40 08/11/16 10:00 80 (Monica Bella) -: 08/11/16 0041 08/12/16 0407 Imaging Last Impressions Chest X-Ray 08/11/16 0032 Signed Impressions: Service Date/Time: Thursday, August 11, 2016 00:38 - CONCLUSION: Moderate CHF. K. Rafi Davis MD (Monica Bella CASHIER) Physical Exam General Appearance: Well Developed, Well Nourished, No Acute Distress, Comfortable ( Monica Bella B. CASHIER) Eyes Eye Exam: Pupils Equal (Monica Bella BPedrito CASHIER) Neck Neck Exam: Neck Supple (Monica Bella CASHIER) Pulmonary Resp Exam: Clear Bilaterally, Breath Sounds Equal (Monica Bella B. CASHIER) Cardiology CV Exam: Regular, Normal Sinus Rhythm, Good Perfusion (Monica Bella B. CASHIER) Gastrointestinal/Abdomen GI Exam: Soft, Non-Tender, Bowel Sounds Present (Monica Bella B. CASHIER) Musculoskeletal MS Exam: Joints Intact, Normal Tone (Monica Bella B. CASHIER) Integumentary Skin Exam: Clear, Warm, Dry, Intact (Monica Bella B. CASHIER) Extremeties Extremities Exam: No Edema, Pedal Pulses Palpable (Monica Bella B. CASHIER) Neurologic Neuro Exam: Alert, Awake, Oriented, Speech Clear, Moving All Extremities ( Monica Bella BPedrito CASHIER) Psychiatric Psych Exam: Appropriate Responses (Monica Bella) Assessment/Plan Discussed Condition With: Patient Assessment Summary: Anemia of CKD, CHF, Hypertension, End Stage Renal Disease Problem List: (1) ESRD (end stage renal disease) Plan: 4L UF yesterday, continue MWF HD support no acute electrolyte issues she has functioning HD access at this time continue current plan, avoid IVF and gadolinium intermittent renal panel (2) Shortness of breath Plan: improved, due to fluid overload ween off oxygen (3) Anemia Plan: continue epogen with dialysis start venofer for iron deficiency (4) Hypertensive emergency Plan: improved, continue home medications and monitor effect (5) Metabolic bone disease Plan: phosphorus is low, stop Renvela (Monica Bella B. CASHIER) Plan patient was seen and examined. Hypoxia, shortness of breath due to pulmonary edema have improved. She can be discharged from renal standpoint. (Hemant Azul MD) Monica Bella Aug 12, 2016 09:29 Hemant Azul MD Aug 12, 2016 14:59
[2016-08-12] MEDS ORDERED: IRON SUCROSE INJ 100 MG in SODIUM CHLORIDE 0.9% INJ 100 ML IV SCH (11:00)
== END 2016-08-12 10:40 | disposition home or self-care (01) | DRG 189 ==
LOC: NEPC 00:30 → NEDA 02:22 → HIMN 03:45
PROVIDERS: ADMIT Emergency Medicine; ATTEND Emergency Medicine
PROC: 5A09357 Assistance with Respiratory Ventilation, Less than 24 Consecutive Hours, Continuous Positive Airway Pressure (ICD-10-PCS; principal; 2016-08-11)
PROC: 5A1D00Z (ICD-10-PCS; 2016-08-11)
DX: J96.01 Acute respiratory failure with hypoxia (principal); I13.2 Hypertensive heart and chronic kidney disease with heart failure and with stage 5 chronic kidney disease, or end stage renal disease; J81.0 Acute pulmonary edema; E88.89 Other specified metabolic disorders; N18.6 End stage renal disease; Z99.2 Dependence on renal dialysis; E11.9 Type 2 diabetes mellitus without complications; D64.9 Anemia, unspecified; I16.1 Hypertensive emergency; I50.42 Chronic combined systolic (congestive) and diastolic (congestive) heart failure; E61.1 Iron deficiency; E03.9 Hypothyroidism, unspecified; I73.9 Peripheral vascular disease, unspecified; Z95.0 Presence of cardiac pacemaker; E78.5 Hyperlipidemia, unspecified; I25.2 Old myocardial infarction; I25.10 Atherosclerotic heart disease of native coronary artery without angina pectoris; Z86.010 Personal history of colon polyps
CPT/HCPCS: 36600; 71010; 80048; 80053; 82550; 82805; 83540; 83550; 83735; 83880; 84100; 84484; 85025; 85610; 85730; 87641; 90935; 93005; 94002; 96374; 96375; 99291; J1644; J1940; P9047; Q4081

== ENCOUNTER → 2017-04-16 | Day surgery (SDC) | payer MEDICARE ==
[~2017-04-16] VITALS: Ht 160 cm; Wt 78.8 kg
[~2017-04-16] MED LIST changes: +ASPI-516 CHEW; -ASPI81CH CHEW; +BACITRACIN TOP OINT 15 GM TUBE ONE; +BUPIVACAINE HCL PF 0.5% 30 ML VIAL ONE; +CHLORHEXIDINE GLUCONATE 2 % 1 PACK (2 CLOTHS) TOPICAL PRN; -CHOL1CHW5 CHEW; +CINA30 PO; +DO NOT ADM ANY ANTICOAGULANT DRUGS PRN; +LACTATED RINGER'S 1000 ML IV PRN; +LIDOCAINE HCL 1% PF 5 ML SYRINGE OTHER ONE; +METOPROLOL TARTRATE 25 MG TAB PO PRN; +NEOMYCIN/POLYMYXIN 1 ML G.U. IRRIGANT ONE; +POVIDONE IODINE 5% (ANTISEPSIS KIT) 4 APPLICATIONS EACH NARE PRN; +PROPOFOL 200 MG/20 ML AMP IV ONE; +SODIUM CHLORID 0.9% 500 ML IV PRN; +SODIUM CHLORIDE 0.9% 20 ML VIAL IV ONE; +ceFAZolin INJ 1,000 MG VIAL IV ONE
[2017-04-16 07:34] LABS: AUTOMATED NEUTROPHIL # 2.1 TH/MM3 (1.8-7.7); EOSINOPHIL # 0.2 TH/MM3 (0-0.4); EOSINOPHIL % 5.7 % (0.0-4.0); HEMATOCRIT 35.9 % (35.0-46.0); LYMPH % 34.6 % (9.0-44.0); LYMPHOCYTE # 1.5 TH/MM3 (1.0-4.8); MEAN CELL VOLUME 92.3 FL (80.0-100.0); MEAN CORPUSCULAR HEMOGLOBIN 30.8 PG (27.0-34.0); MEAN CORPUSCULAR HGB CONC 33.4 % (32.0-36.0); MEAN PLATELET VOLUME 9.2 FL (7.0-11.0); MONO % 9.8 % (0.0-8.0); MONOCYTE # 0.4 TH/MM3 (0-0.9); NEUT % 48.9 % (16.0-70.0); PLATELET COUNT 167 TH/MM3 (150-450); RED BLOOD COUNT 3.89 MIL/MM3 (4.00-5.30); RED CELL DISTRIBUTION WIDTH 17.2 % (11.6-17.2); WHITE BLOOD COUNT 4.3 TH/MM3 (4.0-11.0)
--- NOTE | 2017-04-16 09:08 | PD.OP ---
Operative Report Preoperative Diagnosis: (1) Carpal tunnel syndrome, left Postoperative Diagnosis: (1) Carpal tunnel syndrome, left Procedure: open left carpal tunnel release Anesthesia: MAC Surgeon: Mendez Barba Displayer Merchandise(s): odilon Operation and Findings: compression of the median nerve Mendez Barba MD Apr 16, 2017 09:08
[2017-04-16 10:55] VITALS: BP 147/67; PULSE 71; RESP 20; TEMP 97.7; O2SAT 98
--- NOTE | 2017-04-17 08:53 | MP ---
cc: EFRAIN GRESHAM MD DATE OF SURGERY 04/16/2017 PREOPERATIVE DIAGNOSIS Carpal tunnel syndrome left side. POSTOPERATIVE DIAGNOSIS Carpal tunnel syndrome left side. PROCEDURE Open left carpal tunnel release. SURGEON Dr. Gresham ANESTHESIA MAC ESTIMATED BLOOD LOSS Minimal TOURNIQUET TIME 21 minutes at 250 mmHg COMPLICATIONS No complications. DISPOSITION To PACU stable. INDICATIONS The patient is an 82-year-old female who presented with complains of tingling and numbness involving both hands of several years' duration. She has end-stage renal disease on dialysis. She complained of pain during dialysis. She had a complement of carpal tunnel steel syndrome. She also had positive Phalen's and positive forearm compression test over the carpal tunnel region. Nerve conduction/EMG study showed evidence of severe bilateral carpal tunnel syndrome. The patient had multiple steroid injections with persistent symptoms, hence she was consented for open left carpal tunnel release. The patient was explained the risks and benefits of the procedure. PROCEDURE NOTE The patient was brought to the operating room. Under MAC anesthesia, the left upper extremity was thoroughly prepped and draped. Incision site was marked over the carpal tunnel region measuring 3-4 cm corresponding to the radial margin of the ring finger. About 5 cc of local anesthesia containing a mixture of 2% lidocaine plus 0.5% Marcaine was injected across the incision site. The limb was exsanguinated. An Esmarch tourniquet was inflated to 250 mmHg. The tourniquet was placed distal to the AV fistula on the left forearm. An incision was then made over the proposed incision site. Incision deepened to the palmar fascia. Bleeding points were cauterized with bipolar cautery. Using retractors, the carpal tunnel ligament was exposed. The carpal tunnel ligament was released in a distal to proximal direction complete release carried out. The deep volar forearm fascia was released. The median nerve was found to be compressing to undersurface of the carpal tunnel ligament. The median nerve was from the undersurface of the carpal tunnel ligament by blunt dissection. After ensuring complete release, the palmar skin was approximated using 5-0 nylon in a horizontal mattress interrupted fashion. Xeroform bacitracin dressing applied. A bulky hand dressing was applied which was held in place by bias hand wrap. The tourniquet was deflated. The total tourniquet time was 21 minutes. The patient had good distal circulation after release of the tourniquet. The patient was sent to the Recovery Room in stable condition. She will follow up in [id number] days' time for a dressing change. Efrain Gresham MD SE/GREGORIO /9:08 AM /8:38 AM
== END | disposition home or self-care (01) ==
LOC: HSDC 05:58
PROVIDERS: ATTEND Surgery Surgery of the Hand
DX: G56.02 Carpal tunnel syndrome, left upper limb (principal)
CPT/HCPCS: 01810; 64721; 84132; 85025; J0690; J3010; J7040